=== PATIENT | male | born 1945 | race Caucasian/White ===

== ENCOUNTER 2018-04-02 06:19 | Emergency (ER) | payer OTHER, MEDICARE, SELFPAY ==
[2018-04-02 06:34] VITALS: BP 149/100; PULSE 60; RESP 18; TEMP 36.8; O2SAT 98; BMI 27.1
--- NOTE | 2018-04-02 06:47 | ED.MALEGU ---
HPI - Male Genitourinary General Chief complaint: Urogenital-Male Stated complaint: cystoscopy yesterday cant urinate painful Time Seen by Provider: 04/02/18 06:23 Source: patient and family Mode of arrival: ambulatory Limitations: no limitations History of Present Illness HPI Narrative: 72-year-old male, nonsmoker presents with his for evaluation of difficulty with urination over the course of the day. He has known prostatic cancer and has a recent cystoscopy. He complains he was able to urinate normal until yesterday afternoon when he started noting and decrease in his ability to completely void. Over the course of the night it became increasingly difficult until this morning when he can hardly urinate at all. He denies fever or chills nor nausea or vomiting. He has no chest pain, shortness of breath or abdominal pain. Reports denies other symptoms Related Data Home Medications Medication Instructions Recorded Confirmed LISINOPRIL (Zestril / Prinivil) 10 mg PO Q DAY #0 06/10/10 Promethazine HCl (Phenergan) 25 mg PO PRN #0 06/10/10 lovastatin 40 mg PO Q ARSH #0 06/10/10 Review of Systems Constitutional Denies chills, Denies fever(s), Denies lethargy and Denies weakness Eyes Denies change in vision, Denies eye discharge, Denies irritation and Denies loss of vision ENT Ears, Nose, Mouth, and Throat: Denies change in voice, Denies neck pain and Denies sore throat Cardiovascular Denies chest pain, Denies irregular heart rhythm, Denies lightheadedness, Denies palpitations, Denies dyspnea, Denies dyspnea on exertion and Denies orthopnea Respiratory Denies cough, Denies dyspnea, Denies dyspnea on exertion and Denies wheezing Gastrointestinal Gastrointestinal: Denies abdominal pain, Denies change in bowel habits, Denies diarrhea, Denies nausea and Denies vomiting Genitourinary Denies hematuria, Denies flank pain, Denies urinary incontinence and Denies urinary urgency Comments: Urinary retention Musculoskeletal Denies neck pain Integumentary/Breasts Denies pruritus, Denies erythema, Denies rash and Denies wounds Neurologic Denies confusion, Denies loss of vision and Denies weakness Psychiatric Denies anxiety, Denies confusion, Denies depression, Denies homicidal ideation and Denies suicidal ideation Endocrine Denies palpitations Hematologic/Lymphatic Denies easy bruising Allergic/Immunologic Denies wheezing Exam Narrative Exam Narrative: GEN: AOx3 and in mild distress EYES: Pupils are equal, round, and reactive to light and accommodation. Extraoccular muscles are intact bilaterally. There is no subconjunctival hemorrhage or exudate. CHEST: Lungs are clear to auscultation bilaterally and free of wheezes, rales, or rhonchi. Heart rate is regular rhythm, there are no murmurs, clicks, rubs, or gallops. There is no chest wall tenderness. ABD: Abdomen is soft and nontender. There is no guarding or rebound. Bowel sounds are normal in all 4 quadrants. There is no mass or organomegaly. EXT: Full painless ROM of all extremities with no loss of sensation or strength. SKIN: Warm, pink, and dry. No erythema or rash Initial Vital Signs Initial Vital Signs: Vital Signs Temperature 98.2 F 04/02/18 06:34 Pulse Rate 60 04/02/18 06:34 Respiratory Rate 18 04/02/18 06:34 Blood Pressure 149/100 H 04/02/18 06:34 Pulse Oximetry 98 04/02/18 06:34 Course Orders Ordered: ED Orders 04/02/18 06:37 UA Complete [Urinalysis and Microscopic] Stat Reevaluation(s) Reevaluation #1: Patient has bladder scan noting approximately 600 mils in bladder. Patient able to void and postvoid residual notes for [address] Bertrand catheter discussed with patient and and they state their urologist suggested this would happen Vital Signs - 8 hr 04/02/18 06:34 Temperature 98.2 F Pulse Rate 60 Respiratory Rate 18 Blood Pressure 149/100 H Pulse Oximetry 98 MDM - Male Genitourinary Differential Diagnosis Likely urinary tract infection and acute retention of urine Medical Records Attestation: I reviewed the patient's medical records. Lab Data Attestation: I reviewed the patient's lab results. Lab Results 04/02/18 Range/Units 06:35 Urine Color Red Urine Appearance Other Urine pH 7.0 (4.5-8.0) Ur Specific [place] 1.015 (1.000-1.035) Urine Protein 3+ H (Negative) Urine Glucose (UA) Negative (Negative) g/dL Urine Ketones Negative (NEGATIVE) Urine Occult Blood 3+ H (Negative) Urine Nitrate Negative (Negative) Urine Bilirubin Negative (NEGATIVE) Urine Urobilinogen 0.2 (0.2) E.U./dL Ur Leukocyte Esterase Negative (NEGATIVE) Urine RBC >100/hpf (0-5/HPF) Urine WBC None seen (0-5/HPF) Urine Bacteria None seen (None) Ur Culture Indicated? Cult not indicated MDM Narrative Medical decision making narrative: Multiple etiologies for patient's symptoms considered including: [Acute urinary retention] Patient's symptoms improved or duration of stay with above-stated therapies. Findings and discharge diagnosis discussed with patient/family followed by verbalization of understanding Return precautions discussed with patient/family whom verbalize understanding. Discharge Plan Departure Patient Disposition: Home Clinical Impression: Acute urinary retention Discharge Date/Time: 04/02/18 08:42 Interventions: ED Discharge Assessment Last Done: 04/02/18 08:40 Instructions: DI for Urinary Retention in Men Activity Restrictions/Additional Instructions: *You have been diagnosed with [ acute urinary retention ] *What to do: *continue to take medications as directed *Follow up with your urologist in 2-3 days, call for an appointment. Let them know you were seen in the Emergency Department and that we ask that you be seen in follow up *Return to ER if you should have any new, worsening or concerning symptoms Prescriptions: No Action lovastatin 10 MG tablet 40 mg PO Q ARSH Qty: 0 RF: 0 LISINOPRIL (Zestril / Prinivil) 10 mg PO Q DAY Qty: 0 RF: 0 Promethazine HCl (Phenergan) 25 mg PO PRN Qty: 0 RF: 0
[2018-04-02 06:49] LABS: Bacteria Urine None Seen; WBC Urine None Seen (0-5/HPF)
[2018-04-02 07:04] LABS: Bilirubin Urine UA NEGATIVE (NEGATIVE); Color Urine UA RED; Glucose Urine UA NEGATIVE (Negative); Ketones Urine UA NEGATIVE (NEGATIVE); Leukocyte Esterase Urine UA NEGATIVE (NEGATIVE); Nitrite Urine UA NEGATIVE (Negative); Occult Blood Urine UA 3+ (Negative); Protein Urine UA 3+ (Negative); Specific Gravity Urine UA 1.015 (1.000-1.035); Urobilinogen Urine UA 0.2 E.U./dL (0.2)
[2018-04-02 07:05] LABS: Appearance Urine UA OTHER; Culture Indicated Urine Cult Not Indicated; RBC Urine >100/HPF (0-5/HPF)
--- NOTE | 2018-04-02 07:20 | PC.NURSE ---
Pt educated on preventing UTI with catheter, draining catheter, cleaning catheter. Pt tolerated procedure well. He expressed discomfort during insertion and states the pressure is going away immediately after placement. 500 ML dark red urine returned. tubing secured to left thigh with securement device.
[2018-04-02 07:43] VITALS: BP 140/87; PULSE 80; RESP 18; O2SAT 98
--- NOTE | 2018-04-06 16:25 | PC.NURSE ---
follow up call: pt states doing better, has a follow up appt in a few days to have catheter removed.
== END 2018-04-02 08:42 | disposition home or self-care (01) ==
PROVIDERS: Emergency Provider Emergency Medicine
DX: R33.9 Retention of urine, unspecified (principal)
CPT/HCPCS: 81001; 99283

== ENCOUNTER → 2020-02-26 08:34 | Outpatient (CLI) | payer OTHER, MEDICARE, SELFPAY ==
[2020-02-26 10:11] LABS: Alanine Aminotransferase 43 IU/L (<50); Albumin 4.4 g/dL (3.5-5.0); Albumin Globulin Ratio 1.3 (1.0-2.8); Alkaline Phosphatase 68 U/L (38-126); Aspartate Aminotransferase 37 IU/L (17-59); BUN Creatinine Ratio 17.1 (6-22); Bilirubin Total 0.5 mg/dL (0.2-1.3); Blood Urea Nitrogen 18 mg/dL (9-20); Calcium 9.4 mg/dL (8.4-10.2); Carbon Dioxide 26 mmol/L (22-32); Chloride 102 mmol/L (98-107); Estimated Glomerular Filt Rate > 60.0 mL/min (>60); Globulin 3.5 g/dL (1.7-4.1); Glucose 102 mg/dL (80-110); HEMOLYSIS < 15 (0-50); Sodium 136 mmol/L (137-145); Total Protein 7.9 g/dL (6.3-8.2)
[2020-02-26 10:39] LABS: Prostate Specific Antigen < 0.064 ng/mL (0.10-4.00)
[2020-02-26 10:55] LABS: Vitamin B12 534 pg/mL (239-931)
== END ==
PROVIDERS: Referring Provider Student in an Organized Health Care Education/Training Program; Visit Provider Student in an Organized Health Care Education/Training Program
DX: Z85.51 Personal history of malignant neoplasm of bladder (principal); C67.9 Malignant neoplasm of bladder, unspecified; Z85.46 Personal history of malignant neoplasm of prostate
CPT/HCPCS: 36415; 80053; 82607; 84153; 88112

== ENCOUNTER 2022-08-14 11:49 | Observation (INO) | payer OTHER, SELFPAY ==
[2022-08-14] VITALS (11 sets, daily range): BP systolic 109–169; BP diastolic 59–87; PULSE 72–106; RESP 16–26; TEMP 36.8–36.9; O2SAT 93–98; BMI 29.7; BMI 30.1
--- NOTE | 2022-08-14 11:53 | ED_ITS ---
HPI - GI Bleed General Chief complaint: Dizziness Stated complaint: vomiting, black stool, dark urine Time Seen by Provider: 08/14/22 11:53 History of Present Illness HPI Narrative: 76M smoker with history of GERD, HTN, drinker (30 years ago) presents with his and the chief complaint of a few episodes of dark stools over the past few days it at least 1 episode of dark vomit. At no point has he vomited bright red blood. He is not dizzy nor weak or lightheaded but generally feels a bit under the weather. He denies use of blood thinners. He drank alcohol years ago, but not in an ongoing fashion and has never had any issues with gastrointestinal bleeding before. He denies any chest pain but does feel somewhat short of breath when he exerts himself. He denies any dysuria, frequency or urgency but does state it has been dark Related Data Home Medications Medication Instructions Recorded Confirmed LISINOPRIL (Zestril / Prinivil) 10 mg PO Q DAY ##0 06/10/10 Promethazine HCl (Phenergan) 25 mg PO PRN ##0 06/10/10 lovastatin 10 mg tablet 40 mg PO Q ARSH ##0 06/10/10 Allergies Allergy/AdvReac Type Severity Reaction Status Date / Time No Known Drug Allergies Allergy Verified 08/14/22 11:56 Review of Systems Review of Systems Narrative: GENERAL: See HPI HEENT: Denies sinus pain, ear pain, sore throat, difficulty swallowing, dizziness. RESPIRATORY: See HPI CARDIOVASCULAR: Denies chest pain, palpitations, orthopnea, edema, GASTROINTESTINAL: See HPI : Denies dysuria, frequency, incontinence, hematuria, urinary retention. MUSCULOSKELETAL: denies weakness, joint pain, or bony pain SKIN: Denies rash, skin lesions, or other NEUROLOGIC: Denies weakness, headache, numbness, change in speech, confusion, seizures, incoordination. PSYCHIATRIC: No concerning psychosocial issues. 12 point review of systems is negative except for those stated above Patient History Social History Smoking Status: Unknown if ever smoked Exam Narrative Exam Narrative: GENERAL: [76] year old patient appears older than stated age. Well-developed patient, in mild distress. HEAD: Atraumatic. Normocephalic. EYES: Pupils equal round and reactive. Extraocular motions intact. No scleral icterus. No injection or drainage. ENT: Nose without bleeding, purulent drainage. Throat without erythema, tonsillar hypertrophy or exudate. Airway patent. NECK: Trachea midline. Non tender CARDIOVASCULAR: Regular rate and rhythm without murmurs, gallops, or rubs. RESPIRATORY: Clear to auscultation. Breath sounds equal bilaterally. No wheezes, rales, or rhonchi. GASTROINTESTINAL: Abdomen soft, non-tender, nondistended. EXTREMITIES: No edema or joint tenderness. BACK: Nontender without deformity or crepitance. No flank tenderness. NEURO: AOx3. SKIN: No rash or erythema of visible areas Initial Vital Signs Initial Vital Signs: Vital Signs Temperature 98.5 F 08/14/22 11:51 Pulse Rate 102 H 08/14/22 11:51 Respiratory Rate 18 08/14/22 11:51 Blood Pressure 117/75 08/14/22 11:51 Pulse Oximetry 94 08/14/22 11:51 Oxygen Delivery Method Room Air 08/14/22 11:51 Course Orders Ordered: ED Orders 08/14/22 12:00 XR acute abdomen series Stat 08/14/22 12:10 Complete Blood Count AUTO DIFF Stat Comprehensive Metabolic Panel Stat Lactate (Lactic Acid) Stat Lipase Stat Magnesium Stat PTT Partial Thromboplastin Doron Stat Prothrombin Time INR Stat Troponin & CK Cardiac Panel Stat Type and Screen Stat 08/14/22 18:00 Hemoglobin and Hematocrit Q8H 08/15/22 02:00 Hemoglobin and Hematocrit Q8H 08/15/22 10:00 Hemoglobin and Hematocrit Q8H Sodium Chloride (Normal Saline 0.9%) 1,000 mls @ 1,000 mls/hr IV BOLUS ONE Stop: 08/14/22 14:16 Last Admin: 08/14/22 13:29 Dose: 1,000 mls/hr Discontinued Medications Pantoprazole Sodium (Pantoprazole 40 Mg Vial) 80 mg IV NOW ONE Stop: 08/14/22 12:00 Last Admin: 08/14/22 12:33 Dose: 80 mg Documented By: KM Consultations Consultation #1: Discussed with on-call General surgery, Dr. Rehman, he is happy to be involved in consultation Consultation #2: Discussed with hospitalist, Dr. Piedra, happy to accept Vital Signs Vital signs: Vital Signs - 8 hr 08/14/22 11:51 08/14/22 11:55 08/14/22 11:55 Temperature 98.5 F Pulse Rate 102 H 106 H Respiratory Rate 18 Blood Pressure 117/75 117/75 Pulse Oximetry 94 93 Oxygen Delivery Method Room Air 08/14/22 12:00 Temperature Pulse Rate 97 H Respiratory Rate 21 Blood Pressure Pulse Oximetry 96 Oxygen Delivery Method MDM - GI Bleed Lab Data 08/14/22 12:10 08/14/22 12:10 Labs: Lab Results 08/14/22 08/14/22 08/14/22 Range/Units 12:10 12:10 12:10 WBC 15.2 H (4.5-11.0) X10^3/uL RBC 4.27 L (4.5-5.9) X10^6/uL Hgb 13.0 L (13.5-17.5) g/dL Hct 38.5 L (41-53) % MCV 90.2 (80-100) fL MCH 30.5 (26-34) PG MCHC 33.9 (30-36) % RDW 13.8 (11.6-14.8) % Plt Count 343 (150-400) X10^3/uL Neut % (Auto) 78.8 H (50-75) % Lymph % (Auto) 12.1 L (25-40) % [place] % (Auto) 8.4 (3-14) % Eos % (Auto) 0.4 L (2-4) % Baso % (Auto) 0.3 (0-2) % Neut # (Auto) 00386 H (3818-0270) /uL Lymph # (Auto) 1900 (6898-3249) /uL [place] # (Auto) 1300 H (0-900) /uL Eos # (Auto) 100 (0-450) /uL Baso # (Auto) 0 (0-100) /uL PT 13.2 H (10.1-12.7) SECONDS INR 1.2 (0.9-1.3) APTT 23 L (26-36) SECONDS Sodium (137-145) mmol/L Potassium (3.4-5.1) mmol/L Chloride (98-107) mmol/L Carbon Dioxide (22-32) mmol/L BUN (9-20) mg/dL Creatinine (0.66-1.25) mg/dL Estimated GFR (>60) mL/min BUN/Creatinine Ratio (6-22) Glucose (80-110) mg/dL Lactate (0.7-2.1) mmol/L Calcium (8.4-10.2) mg/dL Magnesium (1.6-2.3) mg/dL Total Bilirubin (0.2-1.3) mg/dL AST (17-59) IU/L ALT (<50) IU/L Alkaline Phosphatase (38-126) U/L Total Creatine Kinase (55-170) U/L CK-MB (CK-2) CK-MB (CK-2) Rel Index Total Protein (6.3-8.2) g/dL Albumin (3.5-5.0) g/dL Globulin (1.7-4.1) g/dL Albumin/Globulin Ratio (1.0-2.8) Lipase (23-300) U/L Blood Type O Positive Antibody Screen Negative 08/14/22 08/14/22 Range/Units 12:10 12:10 WBC (4.5-11.0) X10^3/uL RBC (4.5-5.9) X10^6/uL Hgb (13.5-17.5) g/dL Hct (41-53) % MCV (80-100) fL MCH (26-34) PG MCHC (30-36) % RDW (11.6-14.8) % Plt Count (150-400) X10^3/uL Neut % (Auto) (50-75) % Lymph % (Auto) (25-40) % [place] % (Auto) (3-14) % Eos % (Auto) (2-4) % Baso % (Auto) (0-2) % Neut # (Auto) (0569-7172) /uL Lymph # (Auto) (0873-5531) /uL [place] # (Auto) (0-900) /uL Eos # (Auto) (0-450) /uL Baso # (Auto) (0-100) /uL PT (10.1-12.7) SECONDS INR (0.9-1.3) APTT (26-36) SECONDS Sodium 131 L (137-145) mmol/L Potassium 3.9 (3.4-5.1) mmol/L Chloride 97 L (98-107) mmol/L Carbon Dioxide 24 (22-32) mmol/L BUN 54 H (9-20) mg/dL Creatinine 1.60 H (0.66-1.25) mg/dL Estimated GFR 45 L (>60) mL/min BUN/Creatinine Ratio 33.8 H (6-22) Glucose 116 H (80-110) mg/dL Lactate 2.0 (0.7-2.1) mmol/L Calcium 9.1 (8.4-10.2) mg/dL Magnesium 2.0 (1.6-2.3) mg/dL Total Bilirubin 0.9 (0.2-1.3) mg/dL AST 23 (17-59) IU/L ALT 26 (<50) IU/L Alkaline Phosphatase 68 (38-126) U/L Total Creatine Kinase 90 (55-170) U/L CK-MB (CK-2) TNP CK-MB (CK-2) Rel Index TNP Total Protein 7.0 (6.3-8.2) g/dL Albumin 3.8 (3.5-5.0) g/dL Globulin 3.2 (1.7-4.1) g/dL Albumin/Globulin Ratio 1.2 (1.0-2.8) Lipase 192 (23-300) U/L Blood Type Antibody Screen [facility] Narrative Medical decision making narrative: 76-year-old male presents with dark stools, he feels fatigued but very nonspecific otherwise. He denies any history of the same, thankfully takes no blood thinners. And though he is a former drinker he quit 30 some years ago and has never had any GI bleeding before. Labs in many ways are reassuring and there is no evidence of anemia though his [place] bleeding score is 6. Patient was given Protonix and saline, patient requires hospitalization for further evaluation and characterization of his condition, likely endoscopy in the next day or 2 Discharge Plan Departure Patient Disposition: Admitted As Inpatient Clinical Impression: Acute upper gastrointestinal bleeding, Acute kidney injury
--- NOTE | 2022-08-14 12:00 | DI.RAD.S_ITS ---
PROCEDURE: XR ACUTE ABDOMEN SERIES INDICATIONS: Abdominal pain TECHNIQUE: One view chest and two views of the abdomen were acquired. COMPARISON: [facility], CT, ABDOMEN WITH CONTRAST, 06/10/2010, 14:20. FINDINGS: Surgical changes and devices: None. Chest: Focal linear atelectasis or scarring at the left lung base. Lungs are otherwise clear. Heart size is normal. No pleural effusions. No pneumoperitoneum. Abdomen: Bowel gas pattern is normal. No suspicious calcifications. Visualized solid organ contours appear normal. Bones: No suspicious bony lesions. Degenerative changes are seen in the spine. Mild levoconvex curvature of the lumbar spine. IMPRESSION: Nonspecific nonobstructive bowel gas pattern. No pneumoperitoneum. No acute cardiopulmonary abnormality. Approved by: Wilmar Crowell M.D. on 08/14/2022 at 13:01
[2022-08-14 12:22] LABS: Add Manual Diff / Slide Review NO; Basophils Absolute Auto 0 /uL (0-100); Basophils Percent Auto 0.3 % (0-2); Eosinophils Absolute Auto 100 /uL (0-450); Eosinophils Percent Auto 0.4 % (2-4); Hematocrit 38.5 % (41-53); Lymphocytes Absolute Auto 1900 /uL (1100-4500); Lymphocytes Percent Auto 12.1 % (25-40); Mean Corpuscular HGB Conc 33.9 % (30-36); Mean Corpuscular Hemoglobin 30.5 PG (26-34); Mean Corpuscular Volume 90.2 fL (80-100); Monocytes Absolute Auto 1300 /uL (0-900); Monocytes Percent Auto 8.4 % (3-14); Neutrophils Absolute Auto 12000 /uL (1500-7000); Neutrophils Percent Auto 78.8 % (50-75); Platelet Count 343 X10^3/uL (150-400); Red Blood Cell Count 4.27 X10^6/uL (4.5-5.9); Red Cell Distribution Width 13.8 % (11.6-14.8); White Blood Cell Count 15.2 X10^3/uL (4.5-11.0)
[2022-08-14 12:29] LABS: INR 1.2 (0.9-1.3); Prothrombin Time 13.2 SECONDS (10.1-12.7)
[2022-08-14 12:32] LABS: PTT Partial Thromboplastin Tim 23 SECONDS (26-36)
[2022-08-14] MEDS: PANTOPRAZOLE 40 MG VIAL 80 MG IV (12:33)
[2022-08-14 13:01] LABS: Alanine Aminotransferase 26 IU/L (<50); Albumin 3.8 g/dL (3.5-5.0); Albumin Globulin Ratio 1.2 (1.0-2.8); Alkaline Phosphatase 68 U/L (38-126); Aspartate Aminotransferase 23 IU/L (17-59); BUN Creatinine Ratio 33.8 (6-22); Bilirubin Total 0.9 mg/dL (0.2-1.3); Blood Urea Nitrogen 54 mg/dL (9-20); Calcium 9.1 mg/dL (8.4-10.2); Carbon Dioxide 24 mmol/L (22-32); Chloride 97 mmol/L (98-107); Creatine Kinase 90 U/L (55-170); Estimated Glomerular Filt Rate 45 mL/min (>60); Globulin 3.2 g/dL (1.7-4.1); Glucose 116 mg/dL (80-110); HEMOLYSIS < 15 (0-50); Lipase 192 U/L (23-300); Potassium 3.9 mmol/L (3.4-5.1); Sodium 131 mmol/L (137-145)
[2022-08-14] MEDS: SODIUM CHLORIDE 0.9% 1,000 ML 1000 ML IV (13:29)
[2022-08-14 13:38] LABS: Troponin I 0.013 ng/mL (0.01-0.034)
[2022-08-14 13:58] LABS: Appearance Urine UA CLOUDY; Bilirubin Urine UA NEGATIVE (NEGATIVE); Color Urine UA YELLOW; Glucose Urine UA NEGATIVE (Negative); Ketones Urine UA NEGATIVE (NEGATIVE); Leukocyte Esterase Urine UA 1+ (NEGATIVE); Nitrite Urine UA NEGATIVE (Negative); Occult Blood Urine UA 3+ (Negative); Protein Urine UA 2+ (Negative); pH Urine UA 6.5 (4.5-8.0)
[2022-08-14 14:14] LABS: Amorphous Sediment Urine 2+; Bacteria Urine Few (2-10); Granular Casts Urine 1-5/LPF; Hyaline Casts Urine 1-5/LPF; Mucus Urine 1+ (Negative); RBC Urine 10-30/HPF (0-5/HPF); Squamous Epithelial Cell Urine 1-5 /HPF (0-5/HPF); WBC Urine 5-10/HPF (0-5/HPF)
[2022-08-14 14:15] LABS: Culture Indicated Urine Specimen Cultured
--- NOTE | 2022-08-14 15:40 | P.HP_ITS ---
History of Present Illness History of Present Illness Chief complaint: vomiting, black stool, dark urine Narrative: 76 yo male with GERD, HTN, hyperlipidemia, history of bladder cancer status post urostomy, remote history of peptic ulcer disease 20 years ago, remote alcohol dependence (30 yrs ago) who presented to ED c/o nausea, dark stool, and dark emesis. Patient reports he awoke on August 10 and had nausea and generalized upset stomach. He states the following day his symptoms were unchanged. He notes by , his symptoms were worse. He was able to tolerate some oral intake and feels his urine output was maintained and normal. Yesterday, he states he had black emesis on 3 occasions. He continued to have nausea. Today, he awoke and passed black stool and had ongoing nausea and presented to the emergency department for further evaluation. In the ED his vitals were fairly stable. He was initially mildly tachycardic but that has since resolved. Blood pressures have been stable. Initial labs revealed a hemoglobin of 13.0 (no prior labs for comparison). Sodium was 131, BUN elevated at 54, creatinine elevated at 1.6. Prior labs were from February of 2020 with normal BUN and creatinine. He received 1 L of IV fluids, 80 mg of IV Protonix, and admission was recommended. The emergency room physician contacted on-call General surgery for consultation. Currently, patient reports he still is having nausea. He denies any hematemesis. Further bowel movements. He reports a history of GERD and takes omeprazole chronically. He denies any recent worsening of symptoms. He is a nonsmoker. No alcohol use. Was taking nightly aspirin over the last 5 years. He quit that approximately 2 weeks ago. No [id number] NSAIDs. States he is not been having any abdominal pain. He denies any chest pain, shortness a breath, lightheadedness/dizziness. [facility] Social History household members: family Smoking Status: Never smoker alcohol intake: current Comment: Past medical history: Hypertension Hyperlipidemia Bladder cancer status post urostomy GERD Peptic ulcer disease remotely Remote tobacco dependence Remote alcohol dependence Generalized anxiety disorder Dementia, [place] of in 2019, he was getting lost while driving, and becoming more forgetful. Family history: Mother and grandmother had cancer, unknown etiology Father had heart attack and from that Social history: Patient lives in [place] with his , Mari. She is his surrogate decision maker. He is retired. No alcohol or tobacco use Meds Home Medications and Allergies Home Medications Medication Instructions Recorded Confirmed Type LISINOPRIL (Zestril / Prinivil) 20 mg PO Q DAY ##0 06/10/10 08/14/22 History lovastatin 10 mg tablet 40 mg PO Q ARSH ##0 06/10/10 08/14/22 History aspirin 81 mg tablet,delayed 81 mg PO DAILY 08/14/22 08/14/22 History release citalopram 20 mg tablet 20 mg PO DAILY 08/14/22 08/14/22 History donepezil 5 mg tablet 5 mg PO DAILY 08/14/22 08/14/22 History Allergies Allergy/AdvReac Type Severity Reaction Status Date / Time No Known Drug Allergies Allergy Verified 08/14/22 11:56 Review of Systems Review of Systems Narrative: All other systems were reviewed negative Exam Vital Signs (past 8 hours): - 08/14/22 11:51 08/14/22 11:55 08/14/22 11:55 Temperature 98.5 F Pulse Rate 102 H 106 H Respiratory Rate 18 Blood Pressure 117/75 117/75 Pulse Oximetry 94 93 Oxygen Delivery Method Room Air 08/14/22 12:00 08/14/22 12:30 08/14/22 13:00 Temperature Pulse Rate 97 H 93 H 91 H Respiratory Rate 21 21 23 Blood Pressure Pulse Oximetry 96 95 93 Oxygen Delivery Method 08/14/22 13:30 08/14/22 13:50 08/14/22 13:50 Temperature Pulse Rate 83 83 Respiratory Rate 24 26 H Blood Pressure 123/59 L Pulse Oximetry 96 96 Oxygen Delivery Method 08/14/22 14:00 08/14/22 14:00 08/14/22 14:30 Temperature Pulse Rate 80 Respiratory Rate 22 Blood Pressure 125/66 138/66 Pulse Oximetry 98 Oxygen Delivery Method 08/14/22 14:30 Temperature Pulse Rate 72 Respiratory Rate 22 Blood Pressure Pulse Oximetry 97 Oxygen Delivery Method Oxygen Delivery Method Room Air Narrative Exam Narrative: GEN: Elderly male, pleasant, Alert and oriented x3, no acute distress HEENT: Normocephalic, face symmetric, pupils equal round reactive to light, extraocular movements intact, sclerae anicteric, conjunctiva clear, nares patent, oropharynx reveals an intact soft and hard palate with moist mucous membranes NECK: Supple, no lymphadenopathy, thyroid without enlargement or nodularity, carotids no bruits CHEST: Respiratory excursions symmetric, clear to auscultation bilaterally CV: Regular rate and rhythm, no murmurs, rubs, gallops, PMI nondisplaced ABD: Soft, moderate midepigastric tenderness to palpation, nondistended, bowel sounds present in all 4 quadrants, no organomegaly or masses appreciated, urostomy noted in the right lower quadrant EXTR: Warm, well perfused, no clubbing/cyanosis/edema SKIN: Warm and dry, without rash NEURO: Alert and oriented x3, grossly intact PSYCH: Mood and affect is within normal limits, judgment and insight are appropriate Objective Labs 08/14/22 12:10 08/14/22 12:10 Labs: Laboratory Results - last 24 hr 08/14/22 08/14/22 08/14/22 12:10 12:10 12:10 WBC 15.2 H RBC 4.27 L Hgb 13.0 L Hct 38.5 L MCV 90.2 MCH 30.5 MCHC 33.9 RDW 13.8 Plt Count 343 Neut % (Auto) 78.8 H Lymph % (Auto) 12.1 L [place] % (Auto) 8.4 Eos % (Auto) 0.4 L Baso % (Auto) 0.3 Neut # (Auto) 04368 H Lymph # (Auto) 1900 [place] # (Auto) 1300 H Eos # (Auto) 100 Baso # (Auto) 0 PT 13.2 H INR 1.2 APTT 23 L Sodium Potassium Chloride Carbon Dioxide BUN Creatinine Estimated GFR BUN/Creatinine Ratio Glucose Lactate Calcium Magnesium Total Bilirubin AST ALT Alkaline Phosphatase Total Creatine Kinase CK-MB (CK-2) CK-MB (CK-2) Rel Index Troponin I Total Protein Albumin Globulin Albumin/Globulin Ratio Lipase Urine Color Urine Appearance Urine pH Ur Specific [place] Urine Protein Urine Glucose (UA) Urine Ketones Urine Occult Blood Urine Nitrate Urine Bilirubin Urine Urobilinogen Ur Leukocyte Esterase Urine RBC Urine WBC Ur Squamous Epith Cells Amorphous Sediment Urine Bacteria Hyaline Casts Granular Casts Urine Mucus Ur Culture Indicated? Blood Type O Positive Antibody Screen Negative 08/14/22 08/14/22 08/14/22 12:10 12:10 13:53 WBC RBC Hgb Hct MCV MCH MCHC RDW Plt Count Neut % (Auto) Lymph % (Auto) [place] % (Auto) Eos % (Auto) Baso % (Auto) Neut # (Auto) Lymph # (Auto) [place] # (Auto) Eos # (Auto) Baso # (Auto) PT INR APTT Sodium 131 L Potassium 3.9 Chloride 97 L Carbon Dioxide 24 BUN 54 H Creatinine 1.60 H Estimated GFR 45 L BUN/Creatinine Ratio 33.8 H Glucose 116 H Lactate 2.0 Calcium 9.1 Magnesium 2.0 Total Bilirubin 0.9 AST 23 ALT 26 Alkaline Phosphatase 68 Total Creatine Kinase 90 CK-MB (CK-2) TNP CK-MB (CK-2) Rel Index TNP Troponin I 0.013 Total Protein 7.0 Albumin 3.8 Globulin 3.2 Albumin/Globulin Ratio 1.2 Lipase 192 Urine Color Yellow Urine Appearance Cloudy Urine pH 6.5 Ur Specific [place] 1.010 Urine Protein 2+ H Urine Glucose (UA) Negative Urine Ketones Negative Urine Occult Blood 3+ H Urine Nitrate Negative Urine Bilirubin Negative Urine Urobilinogen 1.0 Ur Leukocyte Esterase 1+ H Urine RBC 10-30/hpf H Urine WBC 5-10/hpf H Ur Squamous Epith Cells 1-5 /hpf Amorphous Sediment 2+ Urine Bacteria Few (2-10) H Hyaline Casts 1-5/lpf Granular Casts 1-5/lpf Urine Mucus 1+ H Ur Culture Indicated? Specimen cultured Blood Type Antibody Screen Assessment & Plan Assessment & Plan narrative: 1. Acute GI bleed, upper Patient presents with black emesis as well as black stool. Likely etiology is an upper GI bleed. He has epigastric discomfort prior history of peptic ulcer disease, recent use of daily aspirin, and known gastroesophageal reflux disease. He is not had any further emesis since yesterday. Hemoglobin is stable. Will continue supportive care with IV ppi, clear liquid diet IV fluid hydration. Await surgical consultation. I have made him NPO after midnight in anticipation of EGD to be done tomorrow morning. Await further consult and recommendations from Dr. Rehman, general surgery. 2. DARÍO Patient presents with azotemia with a BUN of 54 as well as DARÍO with creatinine of 1.6. Likely secondary to hypovolemia from GI bleeding and poor overall intake. Anticipate this will improve with hydration and resolution of his GI bleed. 3. Hypertension Blood pressures have been moderately elevated since arrival to the floor. He was normotensive in the emergency department. Holding lisinopril due to DARÍO. For now, will tolerate some blood pressure elevation but if it persists, will need to add IV antihypertensive therapy. 4. Leukocytosis Likely reactive in nature from his GI bleed. Will monitor. 5. Dementia Patient is typically on Aricept. Previously prescribed memantine but it appears that has since been discontinued. 6. Hyperlipidemia On lovastatin 40 mg daily. 7. Generalized anxiety disorder Plan to resume his she will citalopram dose. Code status Full Prophylaxis Chemical prophylaxis Contraindicated in the setting of GI bleed; low Brunilda score Disposition Admit to acute care. Surrogate decision maker: Mari carpenter, , left VM to call for update. Quality VTE Deep Vein Thrombosis/Pulmonary Embolism Present on Admission: No
[2022-08-14] MEDS: SODIUM CHLORIDE 0.45% 1,000 ML 100 ML IV (16:33)
--- NOTE | 2022-08-14 16:35 | PC.NURSE ---
Patient states that he had a fall today out of bed. His skin is clear, patient does have a urostomy from bladder cancer. He states that he does not feel great but denies pain or nausea. He does have some mild dementia, went home for the night and will be back tomorrow. No signs or symptoms of syncope and patient has only voided.
[2022-08-14 18:48] LABS: Hematocrit 36.7 % (41-53); Hemoglobin 12.2 g/dL (13.5-17.5)
[2022-08-14] MEDS: PANTOPRAZOLE 40 MG VIAL IV (20:46)
[2022-08-14] MEDS: MELATONIN 3 MG TABLET PO (20:46)
[2022-08-14] MEDS: MEMANTINE HCL 5 MG TABLET 10 MG PO (21:46)
[2022-08-15] VITALS (11 sets, daily range): BP systolic 85–135; BP diastolic 55–78; PULSE 74–84; RESP 11–21; TEMP 36.3–37; O2SAT 93–98; BMI 30.1
--- NOTE | 2022-08-15 | PATH_ITS ---
[facility] Accession Number: [id number] No. of containers..01 Tissue . 01 Material submitted: . stomach - ANTRUM BIOPSIES . 01 Diagnosis: Gastric Antrum, Biopsies: Gastric antral mucosa with no diagnostic abnormality. No evidence of Helicobacter organisms on H/E stain. Negative for intestinal metaplasia. Negative for dysplasia or malignancy. V 08/21/2022 1534 Local . 01 Electronically signed: . Darien Taylor MD, PhD, Pathologist NPI- [id number] . 01 Gross description: . ANTRUM BIOPSIES: Received in formalin are multiple fragment(s) of gonzalez, soft tissue measuring 1.0 x 0.3 x 0.1 cm in aggregate submitted entirely in 1 cassette(s) /[facility] 08/19/2022 1444 Local . 01 Pathologist provided ICD-10: R10.13 . 01 CPT . 394358 Specimen Comment: A courtesy copy of this report has been sent to [phone] Performed at: 01 [facility] [address] [place] [address], [place], [place] [id number] MD Vinnie Hills MD Phone: [phone]
[2022-08-15] MEDS: SODIUM CHLORIDE 0.45% 1,000 ML 100 ML IV (02:33)
[2022-08-15 05:08] LABS: Add Manual Diff / Slide Review NO; Basophils Absolute Auto 0 /uL (0-100); Basophils Percent Auto 0.5 % (0-2); Eosinophils Absolute Auto 200 /uL (0-450); Eosinophils Percent Auto 2.1 % (2-4); Hematocrit 33.7 % (41-53); Hemoglobin 11.3 g/dL (13.5-17.5); Lymphocytes Absolute Auto 1400 /uL (1100-4500); Lymphocytes Percent Auto 15.7 % (25-40); Mean Corpuscular HGB Conc 33.6 % (30-36); Mean Corpuscular Hemoglobin 30.6 PG (26-34); Mean Corpuscular Volume 91.1 fL (80-100); Monocytes Absolute Auto 700 /uL (0-900); Monocytes Percent Auto 7.8 % (3-14); Neutrophils Absolute Auto 6800 /uL (1500-7000); Neutrophils Percent Auto 73.9 % (50-75); Platelet Count 266 X10^3/uL (150-400); Red Cell Distribution Width 13.9 % (11.6-14.8); White Blood Cell Count 9.2 X10^3/uL (4.5-11.0)
[2022-08-15 05:23] LABS: BUN Creatinine Ratio 33.8 (6-22); Blood Urea Nitrogen 45 mg/dL (9-20); Calcium 7.9 mg/dL (8.4-10.2); Carbon Dioxide 25 mmol/L (22-32); Chloride 99 mmol/L (98-107); Estimated Glomerular Filt Rate 56 mL/min (>60); Glucose 96 mg/dL (80-110); HEMOLYSIS < 15 (0-50); Potassium 3.9 mmol/L (3.4-5.1); Sodium 130 mmol/L (137-145)
[2022-08-15] MEDS: PANTOPRAZOLE 40 MG VIAL IV (09:15)
[2022-08-15 10:00] LABS: COVID19 -Nasal RAPID Negative (Negative)
--- NOTE | 2022-08-15 10:07 | P.CONS_ITS ---
History of Present Illness Consult details Date Patient Seen: 08/15/22 Time Patient Seen: 10:07 Chief complaint: vomiting, black stool, dark urine Narrative: Som is a 76-year-old man who presented to abdominal pain, nausea and hematemesis and melena. His hemoglobin was 13.0. Has never had an EGD or colonoscopy. Has done Cologuard testing in the past which has always been negative. Meds Home Medications and Allergies Home Medications Medication Instructions Recorded Confirmed Type LISINOPRIL (Zestril / Prinivil) 20 mg PO Q DAY ##0 06/10/10 08/14/22 History lovastatin 10 mg tablet 40 mg PO Q ARSH ##0 06/10/10 08/14/22 History aspirin 81 mg tablet,delayed 81 mg PO DAILY 08/14/22 08/14/22 History release citalopram 20 mg tablet 20 mg PO DAILY 08/14/22 08/14/22 History donepezil 5 mg tablet 5 mg PO DAILY 08/14/22 08/14/22 History Allergies Allergy/AdvReac Type Severity Reaction Status Date / Time No Known Drug Allergies Allergy Verified 08/14/22 11:56 Exam Vital Signs (past 8 hours): - 08/15/22 03:56 08/15/22 08:41 Temperature 97.8 F 98.3 F Pulse Rate 75 82 Respiratory Rate 18 18 Blood Pressure 110/62 119/67 Pulse Oximetry 94 96 Oxygen Flow Rate 0 0 Oxygen Delivery Method Room Air Oxygen Flow Rate 0 Const General: frail appearing Resp Effort & Inspection: normal respiratory effort Objective Labs 08/15/22 04:40 08/15/22 04:40 Labs: Laboratory Results - last 24 hr 08/14/22 08/14/22 08/14/22 12:10 12:10 12:10 WBC 15.2 H RBC 4.27 L Hgb 13.0 L Hct 38.5 L MCV 90.2 MCH 30.5 MCHC 33.9 RDW 13.8 Plt Count 343 Neut % (Auto) 78.8 H Lymph % (Auto) 12.1 L [place] % (Auto) 8.4 Eos % (Auto) 0.4 L Baso % (Auto) 0.3 Neut # (Auto) 77217 H Lymph # (Auto) 1900 [place] # (Auto) 1300 H Eos # (Auto) 100 Baso # (Auto) 0 PT 13.2 H INR 1.2 APTT 23 L Sodium Potassium Chloride Carbon Dioxide BUN Creatinine Estimated GFR BUN/Creatinine Ratio Glucose Lactate Calcium Magnesium Total Bilirubin AST ALT Alkaline Phosphatase Total Creatine Kinase CK-MB (CK-2) CK-MB (CK-2) Rel Index Troponin I Total Protein Albumin Globulin Albumin/Globulin Ratio Lipase Urine Color Urine Appearance Urine pH Ur Specific [place] Urine Protein Urine Glucose (UA) Urine Ketones Urine Occult Blood Urine Nitrate Urine Bilirubin Urine Urobilinogen Ur Leukocyte Esterase Urine RBC Urine WBC Ur Squamous Epith Cells Amorphous Sediment Urine Bacteria Hyaline Casts Granular Casts Urine Mucus Ur Culture Indicated? SARS-CoV-2 (PCR) Blood Type O Positive Antibody Screen Negative 08/14/22 08/14/22 08/14/22 12:10 12:10 13:53 WBC RBC Hgb Hct MCV MCH MCHC RDW Plt Count Neut % (Auto) Lymph % (Auto) [place] % (Auto) Eos % (Auto) Baso % (Auto) Neut # (Auto) Lymph # (Auto) [place] # (Auto) Eos # (Auto) Baso # (Auto) PT INR APTT Sodium 131 L Potassium 3.9 Chloride 97 L Carbon Dioxide 24 BUN 54 H Creatinine 1.60 H Estimated GFR 45 L BUN/Creatinine Ratio 33.8 H Glucose 116 H Lactate 2.0 Calcium 9.1 Magnesium 2.0 Total Bilirubin 0.9 AST 23 ALT 26 Alkaline Phosphatase 68 Total Creatine Kinase 90 CK-MB (CK-2) TNP CK-MB (CK-2) Rel Index TNP Troponin I 0.013 Total Protein 7.0 Albumin 3.8 Globulin 3.2 Albumin/Globulin Ratio 1.2 Lipase 192 Urine Color Yellow Urine Appearance Cloudy Urine pH 6.5 Ur Specific [place] 1.010 Urine Protein 2+ H Urine Glucose (UA) Negative Urine Ketones Negative Urine Occult Blood 3+ H Urine Nitrate Negative Urine Bilirubin Negative Urine Urobilinogen 1.0 Ur Leukocyte Esterase 1+ H Urine RBC 10-30/hpf H Urine WBC 5-10/hpf H Ur Squamous Epith Cells 1-5 /hpf Amorphous Sediment 2+ Urine Bacteria Few (2-10) H Hyaline Casts 1-5/lpf Granular Casts 1-5/lpf Urine Mucus 1+ H Ur Culture Indicated? Specimen cultured SARS-CoV-2 (PCR) Blood Type Antibody Screen 08/14/22 08/15/22 08/15/22 18:40 04:40 04:40 WBC 9.2 RBC 3.70 L Hgb 12.2 L 11.3 L Hct 36.7 L 33.7 L MCV 91.1 MCH 30.6 MCHC 33.6 RDW 13.9 Plt Count 266 Neut % (Auto) 73.9 Lymph % (Auto) 15.7 L [place] % (Auto) 7.8 Eos % (Auto) 2.1 Baso % (Auto) 0.5 Neut # (Auto) 6800 Lymph # (Auto) 1400 [place] # (Auto) 700 Eos # (Auto) 200 Baso # (Auto) 0 PT INR APTT Sodium 130 L Potassium 3.9 Chloride 99 Carbon Dioxide 25 BUN 45 H Creatinine 1.33 H Estimated GFR 56 L BUN/Creatinine Ratio 33.8 H Glucose 96 Lactate Calcium 7.9 L Magnesium Total Bilirubin AST ALT Alkaline Phosphatase Total Creatine Kinase CK-MB (CK-2) CK-MB (CK-2) Rel Index Troponin I Total Protein Albumin Globulin Albumin/Globulin Ratio Lipase Urine Color Urine Appearance Urine pH Ur Specific [place] Urine Protein Urine Glucose (UA) Urine Ketones Urine Occult Blood Urine Nitrate Urine Bilirubin Urine Urobilinogen Ur Leukocyte Esterase Urine RBC Urine WBC Ur Squamous Epith Cells Amorphous Sediment Urine Bacteria Hyaline Casts Granular Casts Urine Mucus Ur Culture Indicated? SARS-CoV-2 (PCR) Blood Type Antibody Screen 08/15/22 09:02 WBC RBC Hgb Hct MCV MCH MCHC RDW Plt Count Neut % (Auto) Lymph % (Auto) [place] % (Auto) Eos % (Auto) Baso % (Auto) Neut # (Auto) Lymph # (Auto) [place] # (Auto) Eos # (Auto) Baso # (Auto) PT INR APTT Sodium Potassium Chloride Carbon Dioxide BUN Creatinine Estimated GFR BUN/Creatinine Ratio Glucose Lactate Calcium Magnesium Total Bilirubin AST ALT Alkaline Phosphatase Total Creatine Kinase CK-MB (CK-2) CK-MB (CK-2) Rel Index Troponin I Total Protein Albumin Globulin Albumin/Globulin Ratio Lipase Urine Color Urine Appearance Urine pH Ur Specific [place] Urine Protein Urine Glucose (UA) Urine Ketones Urine Occult Blood Urine Nitrate Urine Bilirubin Urine Urobilinogen Ur Leukocyte Esterase Urine RBC Urine WBC Ur Squamous Epith Cells Amorphous Sediment Urine Bacteria Hyaline Casts Granular Casts Urine Mucus Ur Culture Indicated? SARS-CoV-2 (PCR) Negative Blood Type Antibody Screen PFSH Medical History Bladder cancer GERD (gastroesophageal reflux disease) HTN (hypertension) Peptic ulcer disease Quit consuming alcohol in remote past Surgical History (Updated 08/15/22 @ 10:05 by Suyapa Mcqueen RN) History of urostomy Social History household members: family Tobacco & Substance Use Smoking Status: Never smoker alcohol intake: current Assessment & Plan Assessment and plan (1) Acute upper gastrointestinal bleeding: Status: Acute Plan Plan to proceed with esophagogastroduodenoscopy to rule out upper GI source of GI bleeding. We reviewed the risks and benefits and he would like proceed.
[2022-08-15] MEDS: LACTATED RINGERS 1,000 ML 42 ML IV (10:08)
--- NOTE | 2022-08-15 10:32 | PM.OP.EGD ---
Operative Date/Time/Diagnoses Date of procedure: 08/15/22 Time of procedure: 10:33 Pre-op diagnosis: Anemia and melena Post-op diagnosis: same Procedure & Clinicians Study performed: Esophagogastroduodenoscopy Same procedure as scheduled: Yes Surgeon: Giovanny Harp Procedure Notes Procedure in detail: Surgeon: Giovanny Harp MD Anesthesia: Mesfin Millan MD A timeout was performed. A bite blocked was placed. The patient was positioned in the left lateral decubitus position. Anesthesia was administered. The endoscope was inserted through the bite block and passed through the esophagus and stomach and into the duodenum. There was a rather large ulcer in the pyloric channel with an adherent blood clot. There was no active bleeding. Scope was advanced into second portion of the duodenum which appeared normal. The scope was withdrawn into the stomach. There was evidence of healing ulcers in the antrum and at the incisura. Random biopsies were taken from the antrum. The scope was retroflexed and no hiatal hernia was seen. The scope was withdrawn into the esophagus and no other abnormalities were seen. The remainder of the esophagus was normal. The scope was withdrawn. The patient was awakened and brought to recovery. Sedation time: 11 minutes Findings: Evidence of peptic ulcer disease of the antrum and pyloric channel Post-procedure Disposition: PACU
[2022-08-15] MEDS: CITALOPRAM 10 MG TABLET 20 MG PO (11:19)
[2022-08-15] MEDS: ACETAMINOPHEN 325 MG TABLET 650 MG PO (11:20)
[2022-08-15] MEDS: MEMANTINE HCL 5 MG TABLET 10 MG PO (11:20)
[2022-08-15 11:53] LABS: Hematocrit 33.5 % (41-53); Hemoglobin 11.4 g/dL (13.5-17.5)
--- NOTE | 2022-08-15 14:23 | PM.DS.1 ---
History of Present Illness History of Present Illness Chief complaint: vomiting, black stool, dark urine Narrative: 76 yo male with GERD, HTN, hyperlipidemia, history of bladder cancer status post urostomy, remote history of peptic ulcer disease 20 years ago, remote alcohol dependence (30 yrs ago) who presented to ED c/o nausea, dark stool, and dark emesis. Patient reports he awoke on August 10 and had nausea and generalized upset stomach. He states the following day his symptoms were unchanged. He notes by , his symptoms were worse. He was able to tolerate some oral intake and feels his urine output was maintained and normal. Yesterday, he states he had black emesis on 3 occasions. He continued to have nausea. Today, he awoke and passed black stool and had ongoing nausea and presented to the emergency department for further evaluation. In the ED his vitals were fairly stable. He was initially mildly tachycardic but that has since resolved. Blood pressures have been stable. Initial labs revealed a hemoglobin of 13.0 (no prior labs for comparison). Sodium was 131, BUN elevated at 54, creatinine elevated at 1.6. Prior labs were from February of 2020 with normal BUN and creatinine. He received 1 L of IV fluids, 80 mg of IV Protonix, and admission was recommended. The emergency room physician contacted on-call General surgery for consultation. Currently, patient reports he still is having nausea. He denies any hematemesis. Further bowel movements. He reports a history of GERD and takes omeprazole chronically. He denies any recent worsening of symptoms. He is a nonsmoker. No alcohol use. Was taking nightly aspirin over the last 5 years. He quit that approximately 2 weeks ago. No [id number] NSAIDs. States he is not been having any abdominal pain. He denies any chest pain, shortness a breath, lightheadedness/dizziness. Discharge Providers Provider Date of admission: 08/14/22 13:59 Discharge Date: 08/15/22 Consults: 08/14/22 15:04 Consult to Physician Routine Comment: Consulting Provider: Vikram Rehman Reason for consultation: UGIB Has provider been notified: No Discharge provider: Komal Piedra MD Summary Hospital Course Discharge Diagnosis: 1. Acute upper GI bleed secondary to pyloric ulcer, H pylori pending 2. DARÍO, improved 3. Hypertension, stable 4. Leukocytosis, likely reactive from GI bleeding, improved 5. Dementia, chronic, stable 6. Hyperlipidemia, chronic, stable 7. Generalized anxiety disorder Hospital Course: please see history and physical for further details. In brief, patient presented to the emergency department with black emesis and stool. He was admitted for probable upper GI bleed. He underwent endoscopy after general surgical consultation on August 15. Findings were peptic ulcer disease of the antrum and pyloric channel. H pylori testing was sent and is pending at this time. Patient is being discharged home with acid suppressive therapy. Dr. Harp advised that he will contact the patient should H pylori results be positive and will pursue additional treatment. Patient is asymptomatic at the time of discharge. He has had no nausea, vomiting, or melena. He is no abdominal pain. He is tolerating a diet. He is discharged in stable condition. Status at Discharge Cognitive/behavioral status at discharge: at baseline, oriented Overall status at discharge: patient is progressing back to baseline Time Spent with Patient Time spent: Greater than 30 minutes ( 35 minutes spent in consultation with patient, spouse, and in follow-up with the patient post endoscopy, as well as coordinating discharge.) Exam Vital Signs (past 8 hours): - 08/15/22 08:41 08/15/22 10:09 08/15/22 10:32 Temperature 98.3 F 98.6 F 97.3 F L Pulse Rate 82 83 83 Respiratory Rate 18 11 L 13 Blood Pressure 119/67 132/78 85/55 L Pulse Oximetry 96 94 96 Oxygen Delivery Method Room Air Nasal Cannula Oxygen Flow Rate 0 3 08/15/22 10:36 08/15/22 10:39 08/15/22 10:44 Temperature Pulse Rate 84 81 83 Respiratory Rate 13 21 21 Blood Pressure 90/60 92/56 L 101/63 Pulse Oximetry 97 98 95 Oxygen Delivery Method Nasal Cannula Nasal Cannula Room Air Oxygen Flow Rate 3 3 08/15/22 11:04 08/15/22 11:34 08/15/22 08:00 Temperature 97.6 F 98 F Pulse Rate 77 74 Respiratory Rate 18 18 Blood Pressure 113/65 117/62 Pulse Oximetry 94 97 Oxygen Delivery Method Room Air Oxygen Flow Rate 0 0 08/15/22 12:04 Temperature 98.4 F Pulse Rate 78 Respiratory Rate 18 Blood Pressure 135/72 Pulse Oximetry 97 Oxygen Delivery Method Oxygen Flow Rate 0 Oxygen Delivery Method Room Air Oxygen Flow Rate 0 Narrative Exam Narrative: GEN: Pleasant elderly male,Alert and oriented x 3, NAD HEENT:NC, Face symmetric CHEST: Respiratory excursions symmetric, CTAB CV: RRR, no M/R/G ABD: Soft, NT/ND, BT present in all 4 quadrants, no organomegaly or masses EXTR: warm, well perfused, no C/C/E SKIN: warm and dry, no rash NEURO: Alert and oriented x 3, nonfocal Objective Labs 08/15/22 11:35 08/15/22 04:40 Labs: Laboratory Results - last 24 hr 08/14/22 08/15/22 08/15/22 18:40 04:40 04:40 WBC 9.2 RBC 3.70 L Hgb 12.2 L 11.3 L Hct 36.7 L 33.7 L MCV 91.1 MCH 30.6 MCHC 33.6 RDW 13.9 Plt Count 266 Neut % (Auto) 73.9 Lymph % (Auto) 15.7 L Crook % (Auto) 7.8 Eos % (Auto) 2.1 Baso % (Auto) 0.5 Neut # (Auto) 6800 Lymph # (Auto) 1400 Crook # (Auto) 700 Eos # (Auto) 200 Baso # (Auto) 0 Sodium 130 L Potassium 3.9 Chloride 99 Carbon Dioxide 25 BUN 45 H Creatinine 1.33 H Estimated GFR 56 L BUN/Creatinine Ratio 33.8 H Glucose 96 Calcium 7.9 L SARS-CoV-2 (PCR) 08/15/22 08/15/22 09:02 11:35 WBC RBC Hgb 11.4 L Hct 33.5 L MCV MCH MCHC RDW Plt Count Neut % (Auto) Lymph % (Auto) Crook % (Auto) Eos % (Auto) Baso % (Auto) Neut # (Auto) Lymph # (Auto) Crook # (Auto) Eos # (Auto) Baso # (Auto) Sodium Potassium Chloride Carbon Dioxide BUN Creatinine Estimated GFR BUN/Creatinine Ratio Glucose Calcium SARS-CoV-2 (PCR) Negative PFSH Medical History Bladder cancer Dementia Generalized anxiety disorder GERD (gastroesophageal reflux disease) H/O hyperlipidemia HTN (hypertension) Peptic ulcer disease Quit consuming alcohol in remote past Quit using tobacco in remote past Surgical History (Updated 08/15/22 @ 10:05 by Suyapa Mcqueen RN) History of urostomy Social History household members: spouse and family Smoking Status: Never smoker alcohol intake: current Discharge Plan Discharge Plan Patient Disposition: Home Provider Discharge Comment: You were diagnosed with a pyloric ulcer (stomach). They are testing it for H pylori (a bacteria). If it is present, you will need additional medications for treatment. Dr. Harp will call you if you do have H pylori. Continue to take pantoprazole (acid blocking medication) as it will help heal the ulcer. Take it twice a day for one month, then once a day. Recommendations: Do not take aspirin, naproxen, or ibuprofen Eat a healthy diet Avoid alcohol and tobacco products Return to the ED for: Black or tarry stool; vomit that looks like coffee grounds; bloody or maroon colored stool Inability to hold down food/fluids Lightheadedness/dizziness/shortness of breath Nursing Discharge Comment: You have a urine culture pending. Ask your doctor about the results. Discharge orders & Medications Prescriptions: New melatonin 3 mg Tablet 3 mg PO BEDTIME Qty: 30 0RF pantoprazole 40 mg Tablet,Delayed Release (Dr/Ec) 40 mg PO 2XD Qty: 60 0RF memantine [Namenda] 5 mg Tablet 10 mg PO BID Qty: 30 0RF Continued lovastatin 10 MG tablet 40 mg PO Q ARSH Qty: 0 LISINOPRIL (Zestril / Prinivil) 20 mg PO Q DAY Qty: 0 donepezil 5 mg Tablet 5 mg PO DAILY citalopram 20 mg Tablet 20 mg PO DAILY Discontinued aspirin [Aspir-81] 81 mg Tablet,Delayed Release (Dr/Ec) 81 mg PO DAILY Diet/Activity/Treatments Diet: Diet as Tolerated and Regular Activity: As tolerated Oxygen: N/A Visit Report/Discharge Packet Instructions: DI for Gastroesophageal Reflux Disease (GERD), DI for Gastric Ulcer, How to Prevent Falls, DI for Acute Kidney Injury, EGD Discharge Instructions Stand Alone Forms: Patient Portal/API, EGD Result: Isld Surg Quality VTE Deep Vein Thrombosis/Pulmonary Embolism Present on Admission: No
--- NOTE | 2022-08-15 14:59 | CM.DANOTE ---
Discharge Planning/Care Management CM Discharge Assessment Start: 08/15/22 14:55 Freq: Status: Active Protocol: Document 08/15/22 14:55 PORTER (Rec: 08/15/22 14:59 PORTER [id number]) Discharge Planning Assessment Assigned Industrial Seamstress BRIAN Burns DPOA/Assigned Designee Name Mari Montes, spouse Contact Information [phone] Advance Directives? No History Provided By Patient,Family Member,Medical Record Prior Living Arrangements House Household Members spouse,family Type of transporation used prior to Relies on Others admit Independent with ADL's Yes Is patient alert and oriented? No: Dementia Barriers to Discharge No Comment 76 yo M presented to the ER with black emesis and stool. He was admitted for probable upper GI bleed. He underwent endoscopy after general surgical consultation; results were peptic ulcer disease of the antrum and pyloric channel . patient now asymptomatic and discharged back home w/spouse and supportive family. No addtl needs identified, close outpatient follow up advised Discharge Plan Home Transportation Arrangement Family Referrals Initiated None needed
--- NOTE | 2022-08-15 15:05 | PC.NURSE ---
Discharge: Pt feels ready to d/c to home. Pt has tolerated his diet w/out problems. Feels improved since admit to the hospital. Lower abd tenderness but no pain. Reviewed d/c packet with pt and spouse. His bp has been sl low. Lisinopril has not been given. Discussed parameter for bp. Given rx for protonix. Reviewed d/c packet, questions answered. Pt feels ready to d/c to home. Pt d/c to home via auto w/spouse.
== END 2022-08-15 15:00 | disposition home or self-care (01) ==
LOC: ED 13:22 → AC 14:03
PROVIDERS: Surgery; Admitting Provider Family Medicine; Emergency Provider Emergency Medicine; Referring Provider Emergency Medicine; Visit Provider Family Medicine
PROC: 0DJ08ZZ Inspection of Upper Intestinal Tract, Via Natural or Artificial Opening Endoscopic (ICD-10-PCS; CPT 43235; principal; 2022-08-15 10:00)
DX: K25.4 Chronic or unspecified gastric ulcer with hemorrhage (principal); R42 Dizziness and giddiness; N17.9 Acute kidney failure, unspecified; I10 Essential (primary) hypertension; K21.9 Gastro-esophageal reflux disease without esophagitis; E86.0 Dehydration; D72.829 Elevated white blood cell count, unspecified; F03.90 Unspecified dementia, unspecified severity, without behavioral disturbance, psychotic disturbance, mood disturbance, and anxiety; E78.5 Hyperlipidemia, unspecified; F41.9 Anxiety disorder, unspecified
CPT/HCPCS: 43239; 36415; 74022; 80048; 80053; 81001; 82550; 83605; 83690; 83735; 84484; 85014; 85018; 85025; 85610; 85730; 86850; 86900; 86901; 87086; 87635; 93005; 93010; 96361; 96374; 96376; 99231; 99284; C9803; G0378; C9113; J2704; J3010; J7050

== ENCOUNTER 2022-10-22 07:04 | Day surgery (SDC) | payer OTHER, SELFPAY ==
[2022-08-14 15:08] VITALS: BMI 30.1
[2022-10-22] VITALS (7 sets, daily range): BP systolic 89–189; BP diastolic 61–108; PULSE 64–89; RESP 12–18; TEMP 36.1–36.7; O2SAT 90–94; BMI 29.0
--- NOTE | 2022-10-22 | PATH_ITS ---
[facility] Accession Number: [id number] No. of containers..01 Tissue . 01 Material submitted: . esophagus - DISTAL ESOPHAGUS . 01 Diagnosis: Distal Esophagus, Biopsy: Squamocolumnar junctional mucosa with focal specialized intestinal metaplasia; please see comment. Negative for dysplasia or malignancy. [facility] 10/30/2022 1029 Local . 01 Comment: The histologic findings in the distal esophagus would be consistent with Gutierrez's esophagus in the appropriate endoscopic setting. . 01 Electronically signed: . Darien Taylor MD, PhD, Pathologist NPI- [id number] . 01 Gross description: . DISTAL ESOPHAGUS: Received in formalin are 4 fragment(s) of gonzalez, soft tissue measuring 0.1 x 0.1 x 0.1 cm to 0.2 x 0.2 x 0.2 cm submitted entirely in 1 cassette(s) /RHIANNON 10/27/2022 1855 Local . 01 Pathologist provided ICD-10: K22.70 . 01 CPT . 845961 Specimen Comment: A courtesy copy of this report has been sent to [phone] Performed at: 01 [facility] [address] [place] [address] [id number] MD Vinnie Hills MD Phone: [phone]
[2022-10-22] MEDS: LACTATED RINGERS 1,000 ML 42 ML IV (07:55)
--- NOTE | 2022-10-22 08:24 | PM.HP.1 ---
History of Present Illness History of Present Illness Date Patient Seen: 10/22/22 Time Patient Seen: 08:24 Chief complaint: EGD w/poss bx Narrative: Som is a 77-year-old man who had an EGD in July for anemia with findings of peptic ulcers. He feels better now and he feels like his ulcers have healed. PFSH Medical History Bladder cancer Dementia Generalized anxiety disorder GERD (gastroesophageal reflux disease) H/O hyperlipidemia HTN (hypertension) Peptic ulcer disease Quit consuming alcohol in remote past Quit using tobacco in remote past Surgical History (Updated 08/15/22 @ 10:05 by Suyapa Mcqueen RN) History of urostomy Social History household members: spouse and family Smoking Status: Never smoker alcohol intake: current Meds Home Medications and Allergies Home Medications Medication Instructions Recorded Confirmed Type LISINOPRIL (Zestril / Prinivil) 20 mg PO Q DAY ##0 06/10/10 10/22/22 History lovastatin 10 mg tablet 40 mg PO Q ARSH ##0 06/10/10 08/14/22 History citalopram 20 mg tablet 20 mg PO DAILY 08/14/22 10/22/22 History donepezil 5 mg tablet 5 mg PO DAILY 08/14/22 10/22/22 History melatonin 3 mg tablet 3 mg PO BEDTIME #30 tabs 08/15/22 10/22/22 Rx memantine 5 mg tablet (Namenda) 10 mg PO BID #30 tabs 08/15/22 10/22/22 Rx pantoprazole 40 mg tablet,delayed 40 mg PO 2XD #60 tabs 08/15/22 10/22/22 Rx release Allergies Allergy/AdvReac Type Severity Reaction Status Date / Time No Known Drug Allergies Allergy Verified 10/22/22 07:19 Exam Vital Signs (past 8 hours): - 10/22/22 07:43 10/22/22 07:46 10/22/22 07:52 Temperature 97.1 F L Pulse Rate 89 73 Respiratory Rate 17 Blood Pressure 189/108 H 154/89 H Pulse Oximetry 94 Oxygen Delivery Method Room Air Room Air Oxygen Delivery Method Room Air Const General: healthy appearing Assessment & Plan Assessment and plan (1) History of peptic ulcer: Status: Acute Plan We reviewed the risks and benefits of an EGD for history of ulcers and he would like to proceed.
--- NOTE | 2022-10-22 08:47 | PM.OP.EGD ---
Operative Date/Time/Diagnoses Date of procedure: 10/22/22 Time of procedure: 08:47 Pre-op diagnosis: History of peptic ulcers Post-op diagnosis: same Procedure & Clinicians Study performed: Esophagogastroduodenoscopy Same procedure as scheduled: Yes Surgeon: Giovanny Harp Procedure Notes Procedure in detail: Surgeon: Giovanny Harp MD Anesthesia: Alessandro Lopez timeout was performed. A bite blocked was placed. The patient was positioned in the left lateral decubitus position. Anesthesia was administered. The endoscope was inserted through the bite block and passed through the esophagus and stomach and into the duodenum. The duodenal mucosa appeared normal. The scope was withdrawn into the duodenal bulb and abnormalities were seen. The scope was withdrawn into the stomach. The pyloric channel ulcers were healing and almost undetectable. The rest of the stomach was normal. The scope was retroflexed and no other abnormalities were seen. The scope was withdrawn into the esophagus and a tongue of salmon-colored mucosa was noted and multiple biopsies were taken from area of abnormality. The remainder of the esophagus was normal. The scope was withdrawn. The patient was awakened and brought to recovery. Sedation time: 7 minutes Findings: Healing pyloric channel ulcers and a salmon-colored patch of esophageal mucosa Post-procedure Disposition: PACU
== END 2022-10-22 09:22 | disposition home or self-care (01) ==
PROVIDERS: PCP Internal Medicine; Referring Provider Surgery; Visit Provider Surgery
PROC: 0DJ08ZZ Inspection of Upper Intestinal Tract, Via Natural or Artificial Opening Endoscopic (ICD-10-PCS; CPT 43235; principal; 2022-10-22 08:15)
DX: K22.70 Barrett's esophagus without dysplasia (principal); Z87.11 Personal history of peptic ulcer disease
CPT/HCPCS: 43239; J2704

== ENCOUNTER → 2024-12-18 09:25 | Outpatient (CLI) | payer MEDICARE, SELFPAY ==
[2022-08-14 15:08] VITALS: BMI 30.1
--- NOTE | 2024-12-18 09:26 | DI.CT.S_ITS ---
PROCEDURE: CT CHEST WO CON INDICATIONS: screening for lung cancer TECHNIQUE: Noncontrast 5 mm thick sections acquired from the pulmonary apices to the posterior costophrenic angles. 1 mm lung window, 5 mm thick coronal and sagittal and 7 mm axial MIP reformats were then acquired. For radiation dose reduction, the following was used: automated exposure control, adjustment of mA and/or kV according to patient size. COMPARISON: None. FINDINGS: Image quality: Diagnostic. Lower Neck: No enlarged lymph nodes. Thyroid: No thyroid nodules which require sonographic follow up, per consensus guidelines. Axillae: No enlarged lymph nodes. Chest Wall: Unremarkable. Bones: Mild age-indeterminate compression deformities of the T8 and T9 vertebral bodies. Multilevel degenerative changes of the spine. Lungs and Pleura: No pneumothorax or pleural effusions. Scattered pulmonary micronodules (<6 mm). No suspicious pulmonary nodules. No focal consolidation. Heart: Heart size is normal. No pericardial effusion. Severe coronary artery calcifications. Thoracic Vessels: The aorta and pulmonary arteries demonstrate normal size. Severe atherosclerotic calcification of the thoracic aorta. Mediastinum and Marissa: No enlarged lymph nodes. Esophagus: Small gastric hiatal hernia. Upper Abdomen: Numerous hypodensities in the liver, favored to reflect cysts although incompletely evaluated due to lack of IV contrast. Multiple renal cystic lesions. Right nephrolithiasis. Visualized upper abdomen solid organs and bowel loops appear otherwise normal. IMPRESSION: No suspicious pulmonary nodules. Lung-RADS 2; recommend continued annual screening if eligible. Dictated by: Xena Mitchell M.D. on 12/18/2024 at 20:49 Approved by: Xena Mitchell M.D. on 12/18/2024 at 20:57
== END ==
LOC: CT 09:26
PROVIDERS: PCP Internal Medicine; Referring Provider Internal Medicine; Visit Provider Internal Medicine
DX: Z12.2 Encounter for screening for malignant neoplasm of respiratory organs (principal); I25.10 Atherosclerotic heart disease of native coronary artery without angina pectoris; I70.0 Atherosclerosis of aorta; K44.9 Diaphragmatic hernia without obstruction or gangrene; N28.1 Cyst of kidney, acquired; N20.0 Calculus of kidney
CPT/HCPCS: 71250

== ENCOUNTER 2025-02-13 10:10 | Inpatient (IN) | payer MEDICARE, SELFPAY ==
[2022-08-14 15:08] VITALS: BMI 30.1
[2025-02-13] VITALS (13 sets, daily range): BP systolic 116–155; BP diastolic 60–82; PULSE 74–115; RESP 15–29; TEMP 36.9–37.7; O2SAT 91–96; BMI 29.7
--- NOTE | 2025-02-13 10:12 | ED.SOB ---
HPI - SOB/Dyspnea General Chief Complaint: Shortness of Breath/Dyspnea Stated Complaint: hypoxia Time Seen by Provider: 02/13/25 10:12 History of Present Illness HPI Narrative: 79-year-old male history of GERD, hypertension, dyslipidemia, history of bladder cancer status post urostomy, history of peptic ulcer disease 20 years ago, remote alcohol dependence 30 years ago presents with cough, shortness of breath, dyspnea on exertion, for the past few days. He denies any chest pain, back pain, abdominal pain, nausea, vomiting, did have diarrhea yesterday. Other than what is stated 14 point review of system is negative. Related Data Home Medications ?Medication ?Instructions ?Recorded ?Confirmed LISINOPRIL (Zestril / Prinivil) 20 mg PO Q DAY ##0 06/10/10 10/22/22 lovastatin 10 mg tablet 40 mg PO Q ARSH ##0 06/10/10 08/14/22 citalopram 20 mg tablet 20 mg PO DAILY 08/14/22 10/22/22 donepezil 5 mg tablet 5 mg PO DAILY 08/14/22 10/22/22 Previous Rx's ?Medication ?Instructions ?Recorded melatonin 3 mg tablet 3 mg PO BEDTIME #30 tabs 08/15/22 memantine 5 mg tablet (Namenda) 10 mg (2 x 5 mg) PO BID #30 tabs 08/15/22 pantoprazole 40 mg tablet,delayed 40 mg PO 2XD #60 tabs 08/15/22 release Allergies Allergy/AdvReac Type Severity Reaction Status Date / Time No Known Drug Allergies Allergy Verified 02/13/25 10:20 Review of Systems Review of Systems ROS Unobtainable: All systems reviewed & are unremarkable except as noted in HPI and below Patient History Medical History (Updated 02/13/25 @ 11:19 by Phill Weeks DO) Dementia Generalized anxiety disorder Quit using tobacco in remote past H/O hyperlipidemia Quit consuming alcohol in remote past Peptic ulcer disease Bladder cancer HTN (hypertension) GERD (gastroesophageal reflux disease) Surgical History (Updated 08/15/22 @ 10:05 by Suyapa Mcqueen RN) History of urostomy Social History household members: spouse and family Smoking Status: Former smoker alcohol intake: current alcohol intake frequency: holidays/special occasions only Exam Narrative Exam Narrative: GENERAL: [79] year old patient appears stated age. Well-developed patient, in mild distress. HEAD: Atraumatic. Normocephalic. EYES: Pupils equal round and reactive. Extraocular motions intact. No scleral icterus. No injection or drainage. ENT: Nose without bleeding, purulent drainage. Throat without erythema, tonsillar hypertrophy or exudate. Airway patent. NECK: Trachea midline. Non tender CARDIOVASCULAR: Regular rate and rhythm without murmurs, gallops, or rubs. RESPIRATORY: Coarse rhonchi right lower GASTROINTESTINAL: Abdomen soft, non-tender, nondistended. EXTREMITIES: No edema or joint tenderness. BACK: Nontender without deformity or crepitance. No flank tenderness. NEURO: AOx3. SKIN: No rash or erythema of visible areas Initial Vital Signs Initial Vital Signs: Vital Signs Temperature 98.4 F 02/13/25 10:10 Pulse Rate 115 H 02/13/25 10:10 Respiratory Rate 16 02/13/25 10:10 Blood Pressure 142/63 H 02/13/25 10:10 Pulse Oximetry 93 02/13/25 10:10 Oxygen Delivery Method Room Air 02/13/25 10:10 Course Orders Ordered: ED Orders 02/13/25 10:18 CT angio chest PE protocol Stat EKG-12 Lead Stat 02/13/25 10:26 Complete Blood Count AUTO DIFF Stat Comprehensive Metabolic Panel Stat Covid-19 + FLU A/B + RSV - PCR Stat Lactate (Lactic Acid) Stat Lipase Stat Magnesium Stat NT-proBNP (BNP-Adult 18+) Stat Troponin I Stat 02/13/25 10:52 Blood Culture Stat 02/13/25 11:12 Ictotest Urine Stat Urine Culture Stat Urine Microscopic Stat Albuterol (Albuterol 2.5 Mg/3 Ml Neb (Adult)) 2.5 mg INH [id number] PRN PRN Reason: Shortness Of Breath Discontinued Medications Albuterol/Ipratropium (Albuterol/Ipratropium 3 Ml Ampul) 3 ml INH NOW ONE Stop: 02/13/25 10:21 Last Admin: 02/13/25 10:22 Dose: Not Given Documented By: SAT Albuterol/Ipratropium (Albuterol/Ipratropium 3 Ml Ampul) 3 ml INH NOW ONE Stop: 02/13/25 10:22 Last Admin: 02/13/25 10:40 Dose: 3 ml Documented By: HARRISON Ceftriaxone Sodium 1,000 mg/ (Sodium Chloride) 100 mls @ 200 mls/hr IV NOW ONE Stop: 02/13/25 11:16 Last Infusion: 02/13/25 12:07 Dose: Infused Documented By: Admin: 02/13/25 11:27 Dose: 200 mls/hr Documented By: JOSIE Azithromycin 500 mg/ Dextrose 250 mls @ 250 mls/hr IV NOW ONE Stop: 02/13/25 11:16 Last Admin: 02/13/25 12:10 Dose: 250 mls/hr Documented By: JOSIE Vital Signs Vital signs: Vital Signs - 8 hr 02/13/25 10:10 02/13/25 10:18 02/13/25 10:19 Temperature 98.4 F Pulse Rate 115 H 109 H 107 H Respiratory Rate 16 21 15 Blood Pressure 142/63 H Pulse Oximetry 93 93 91 Oxygen Delivery Method Room Air Fraction of Inspired Oxygen 02/13/25 10:19 02/13/25 10:36 02/13/25 10:40 Temperature Pulse Rate 100 H 94 H Respiratory Rate 21 16 Blood Pressure 142/63 H Pulse Oximetry 93 96 Oxygen Delivery Method Room Air Fraction of Inspired Oxygen 21 02/13/25 11:00 02/13/25 11:30 02/13/25 12:00 Temperature Pulse Rate 100 H 97 H 95 H Respiratory Rate 22 Blood Pressure Pulse Oximetry 93 92 93 Oxygen Delivery Method Fraction of Inspired Oxygen 02/13/25 12:06 02/13/25 12:06 Temperature Pulse Rate 96 H Respiratory Rate 22 Blood Pressure 135/60 Pulse Oximetry 92 Oxygen Delivery Method Fraction of Inspired Oxygen MDM - SOB/Dyspnea Lab Data 02/13/25 10:26 02/13/25 10:26 Labs: Lab Results 02/13/25 02/13/25 Range/Units 10:26 11:12 WBC 17.5 H (4.5-11.0) X10^3/uL RBC 4.54 (4.5-5.9) X10^6/uL Hgb 14.1 (13.5-17.5) g/dL Hct 41.9 (41-53) % MCV 92.2 (80-100) fL MCH 31.0 (26-34) PG MCHC 33.6 (30-36) % RDW 13.6 (11.6-14.8) % Plt Count 297 (150-400) X10^3/uL Neut % (Auto) Not Reportable Lymph % (Auto) Not Reportable [place] % (Auto) Not Reportable Eos % (Auto) Not Reportable Baso % (Auto) Not Reportable Lymph # (Auto) Not Reportable [place] # (Auto) Not Reportable Baso # (Auto) Not Reportable Total Counted 100 Seg Neutrophils % 74.0 H (38-70) % Band Neutrophils % 10.0 H (3-7) % Lymphocytes % (Manual) 5.0 L (25-45) % Atypical Lymphs % 6.0 H ( - 0) % Monocytes % (Manual) 5.0 (2-11) % Neutrophils # (Manual) 93077 H (3979-1607) /uL RBC Morphology Normal morphology Sodium 131 L (137-145) mmol/L Potassium 4.3 (3.4-5.1) mmol/L Chloride 100 (98-107) mmol/L Carbon Dioxide 17 L (22-32) mmol/L BUN 49 H (9-20) mg/dL Creatinine 1.91 H (0.66-1.25) mg/dL Estimated GFR 35 L (>60) mL/min BUN/Creatinine Ratio 25.7 H (6-22) Glucose 121 H (70-99) mg/dL Lactate 2.1 (0.7-2.1) mmol/L Calcium 9.0 (8.4-10.2) mg/dL Magnesium 2.0 (1.6-2.3) mg/dL Total Bilirubin 2.0 H (0.2-1.3) mg/dL AST 37 (17-59) IU/L ALT 27 (<50) IU/L Alkaline Phosphatase 73 (38-126) U/L Troponin I < 0.012 (0.01-0.034) ng/mL NT-Pro-B Natriuret Pep 304 (<450) pg/mL Total Protein 8.8 H (6.3-8.2) g/dL Albumin 4.5 (3.5-5.0) g/dL Globulin 4.3 H (1.7-4.1) g/dL Albumin/Globulin Ratio 1.0 (1.0-2.8) Lipase 141 (23-300) U/L Ur Bilirubin Confirm Negative (Negative) Urine RBC 30-100/hpf H (0-5/HPF) Urine WBC 30-100/hpf H (0-5/HPF) Ur Squamous Epith Cells 5-10 /hpf H (0-5/HPF) Amorphous Sediment 2+ Urine Bacteria Many (>30) H (None) Hyaline Casts 0-1/lpf (None) Ur Culture Indicated? Cult not indicated Vol Urine Centrifuged 10ml (spun) SARS-CoV-2 (PCR) Negative (Negative) Influenza A (RT-PCR) Flu a negative (NEGATIVE) Influenza B (RT-PCR) Flu b negative (NEGATIVE) RSV (PCR) Negative (Negative) Urine Dip Bedside Urine Glucose Negative Bedside Urine Bilirubin + 1 Bedside Urine Ketone - Negative Urine Specific [place] 1.010 Bedside Urine Occult Blood - Negative Bedside Urine pH 7.0 Bedside Urine Protein + 30 Bedside Urine Urobilinogen - Negative Bedside Urine Nitrite - Negative Bedside Urine Leukocytes ++ [address] scan - chest: Radiologist's Impression: [address] [address] [address] Scan Report Signed Patient: Som Montes MR#: [id number] : 1945 Acct:[id number] Age/Sex: 79 / M Date of Service: 02/13/25 Loc: ED Accession Number: [id number] Procedure: CT angio chest PE protocol Ordering Provider: Phill Weeks D.O. PROCEDURE: CT ANGIO CHEST PE PROTOCOL INDICATIONS: sob low 02 cough TECHNIQUE: After the administration of intravenous contrast, 2 mm thick sections acquired from the pulmonary apices to the posterior costophrenic angles. 3-dimensional maximum intensity projection (MIP) coronal and sagittal reformats were then acquired through the thorax. For radiation dose reduction, the following was used: automated exposure control, adjustment of mA and/or kV according to patient size. COMPARISON: [facility], CT, CT CHEST WO CON, 12/18/2024, 9:45. FINDINGS: Image quality: Diagnostic. Pulmonary arteries: Pulmonary arteries are normal in size, and demonstrate no intraluminal filling defects to suggest central pulmonary embolism. Lower Neck: No enlarged lymph nodes. Thyroid: No thyroid nodules which require sonographic follow up, per consensus guidelines. Axillae: No enlarged lymph nodes. Chest Wall: Unremarkable. Bones: Unchanged mild T8 and T9 vertebral body compression fractures. No new compression fracture is seen. Lungs and Pleura: No pneumothorax or pleural effusions. Moderate centrilobular emphysema. Dependent consolidations in the right upper and right lower lobes. No consolidation or suspicious nodules. Heart: Heart size is normal. No pericardial effusion. Three-vessel coronary artery calcifications. Thoracic Vessels: No aortic aneurysm. Mediastinum and Marissa: Numerous small mediastinal lymph nodes are nonspecific and may be reactive. Esophagus: No wall thickening. Small hiatal hernia. Upper Abdomen: Multiple hepatic cysts appear unchanged. Stable left renal cyst. IMPRESSION: 1. No acute pulmonary embolus. 2. Consolidations in the posterior right upper and lower lobes, suspicious for pneumonia or aspiration. 3. Moderate centrilobular emphysema. 4. Moderate to severe coronary artery calcifications. ECG Data Interpretation: NSR HR 100 [place] 140 QRS [address]-t wave change Unchanged from 07/25/22 [facility] Narrative Medical decision making narrative: All lab work, vital signs, nurse triage note, medication list, previous ER visits, and all imaging studies reviewed. CT chest showed no acute PE. Consolidation in the posterior right upper and lower lobe suspicious for pneumonia or aspiration. Moderate central lobar emphysema. Moderate to severe coronary artery calcification. WBC 17.5 hemoglobin 14.1 platelets 297 sodium 131 potassium 4 point chloride 100 CO2 17 BUN 49 creatinine 1.91 glucose 121 magnesium 2 point T bili 2.0 troponin less than 0.012 and [id number]. Lactic acid 2.1 Patient given DuoNebs Rocephin Zithromax. Case d/w hospitalist for admission. Discharge Plan Departure Patient Disposition: Admitted as Observation Clinical Impression: Pneumonia Admit Date/Time: 02/13/25 12:45 Admit Provider: Morgan Florentino
--- NOTE | 2025-02-13 10:18 | DI.CT.S_ITS ---
PROCEDURE: CT ANGIO CHEST PE PROTOCOL INDICATIONS: sob low 02 cough TECHNIQUE: After the administration of intravenous contrast, 2 mm thick sections acquired from the pulmonary apices to the posterior costophrenic angles. 3-dimensional maximum intensity projection (MIP) coronal and sagittal reformats were then acquired through the thorax. For radiation dose reduction, the following was used: automated exposure control, adjustment of mA and/or kV according to patient size. COMPARISON: [facility], CT, CT CHEST WO [facility], 12/18/2024, 9:45. FINDINGS: Image quality: Diagnostic. Pulmonary arteries: Pulmonary arteries are normal in size, and demonstrate no intraluminal filling defects to suggest central pulmonary embolism. Lower Neck: No enlarged lymph nodes. Thyroid: No thyroid nodules which require sonographic follow up, per consensus guidelines. Axillae: No enlarged lymph nodes. Chest Wall: Unremarkable. Bones: Unchanged mild T8 and T9 vertebral body compression fractures. No new compression fracture is seen. Lungs and Pleura: No pneumothorax or pleural effusions. Moderate centrilobular emphysema. Dependent consolidations in the right upper and right lower lobes. No consolidation or suspicious nodules. Heart: Heart size is normal. No pericardial effusion. Three-vessel coronary artery calcifications. Thoracic Vessels: No aortic aneurysm. Mediastinum and Marissa: Numerous small mediastinal lymph nodes are nonspecific and may be reactive. Esophagus: No wall thickening. Small hiatal hernia. Upper Abdomen: Multiple hepatic cysts appear unchanged. Stable left renal cyst. IMPRESSION: 1. No acute pulmonary embolus. 2. Consolidations in the posterior right upper and lower lobes, suspicious for pneumonia or aspiration. 3. Moderate centrilobular emphysema. 4. Moderate to severe coronary artery calcifications. Approved by: Wilmar Crowell M.D. on 02/13/2025 at 11:01
--- NOTE | 2025-02-13 10:24 | EKG_ITS ---
[facility] [address] [place] [address] Test Date: 2025-02-13 Pat Name: Som Montes Department: [facility] Room: Gender: Male [employer] Supervisor: : 1945 Requested By: Order Number: [id number] Reading MD: Morgan Florentino Measurements Intervals [place] Rate: 100 P: 39 ID: 140 QRS: 5 QRSD: 82 T: 40 QT: 332 QTc: 428 Interpretive Statements Normal sinus rhythm Electronically Signed On 02-13-2025 19:04:23 PST by Morgan Florentino
[2025-02-13 10:36] LABS: Hematocrit 41.9 % (41-53); Hemoglobin 14.1 g/dL (13.5-17.5); Mean Corpuscular HGB Conc 33.6 % (30-36); Mean Corpuscular Hemoglobin 31.0 PG (26-34); Mean Corpuscular Volume 92.2 fL (80-100); Platelet Count 297 X10^3/uL (150-400)
[2025-02-13 10:37] LABS: Add Manual Diff / Slide Review YES
[2025-02-13] MEDS: ALBUTEROL/IPRATROPIUM 3 ML AMPUL INH (10:40)
[2025-02-13 10:48] LABS: Lactate (Lactic Acid) 2.1 mmol/L (0.7-2.1)
[2025-02-13 10:49] LABS: Alanine Aminotransferase 27 IU/L (<50); Albumin 4.5 g/dL (3.5-5.0); Albumin Globulin Ratio 1.0 (1.0-2.8); Alkaline Phosphatase 73 U/L (38-126); Atypical Lymphocytes Percent 6.0 %; Band Neutrophils Percent 10.0 % (3-7); Blood Urea Nitrogen 49 mg/dL (9-20); Calcium 9.0 mg/dL (8.4-10.2); Carbon Dioxide 17 mmol/L (22-32); Chloride 100 mmol/L (98-107); Estimated Glomerular Filt Rate 35 mL/min (>60); Globulin 4.3 g/dL (1.7-4.1); Glucose 121 mg/dL (70-99); Lipase 141 U/L (23-300); Lymphocytes Percent Manual 5.0 % (25-45); Magnesium 2.0 mg/dL (1.6-2.3); Monocytes Percent Manual 5.0 % (2-11); Neutrophils Absolute Manual 14700 /uL (3000-5900); Potassium 4.3 mmol/L (3.4-5.1); Segmented Neutrophils Percent 74.0 % (38-70); Sodium 131 mmol/L (137-145); Total Cells Counted 100; Total Protein 8.8 g/dL (6.3-8.2)
[2025-02-13 10:50] LABS: RBC Morphology Normal Morphology
[2025-02-13 10:55] LABS: HEMOLYSIS 86 (0-50)
[2025-02-13 11:00] LABS: NT-proBNP (BNP-Adult 18+) 304 pg/mL (<450); Troponin I < 0.012 ng/mL (0.01-0.034)
[2025-02-13 11:11] LABS: Influenza A - CEPHEID Flu A NEGATIVE (NEGATIVE); Influenza B - CEPHEID Flu B NEGATIVE (NEGATIVE)
[2025-02-13 11:42] LABS: Ictotest Urine Negative (Negative)
[2025-02-13 11:42] LABS: COVID-19 CEPHEID 4-PLEX PCR Negative (Negative)
[2025-02-13 11:47] LABS: Culture Indicated Urine Cult Not Indicated
[2025-02-13 12:07] LABS: Reflexed Lactate in 2 Hours Y
[2025-02-13] MEDS: AZITHROMYCIN 500 MG in DEXTROSE 5% IN WATER 250 ML 250 MG IV (12:10)
--- NOTE | 2025-02-13 14:03 | PM.HP.1 ---
History of Present Illness History of Present Illness Date Patient Seen: 02/13/25 Time Patient Seen: 14:30 Chief complaint: hypoxia Narrative: The patient is a 79-year-old male who was ill since colonoscopy last Wednesday. He was had a cough and dyspnea. At the walk-in clinic he was found to be hypoxic and sent to the ED. he was a history of dementia, hypertension, dyslipidemia, bladder cancer with urostomy, and peptic ulcer disease. The patient notes that he does have dementia and understands that he was some memory issues. He lives in town, with his . He denies a productive cough, fevers, or chills. No chest pain. He was had a poor appetite. SaO2 is improved in the ED, there was an issue with capnography readings. ED: IV antibiotics given. [facility] Medical History Dementia Generalized anxiety disorder Quit using tobacco in remote past H/O hyperlipidemia Quit consuming alcohol in remote past Peptic ulcer disease Bladder cancer HTN (hypertension) GERD (gastroesophageal reflux disease) Surgical History History of urostomy Social History household members: spouse and family Smoking Status: Former smoker alcohol intake: current Meds Home Medications and Allergies Home Medications ?Medication ?Instructions ?Recorded ?Confirmed ?Type LISINOPRIL (Zestril / Prinivil) 20 mg PO Q DAY ##0 06/10/10 02/13/25 History lovastatin 10 mg tablet 40 mg PO Q ARSH ##0 06/10/10 02/13/25 History citalopram 20 mg tablet 20 mg PO DAILY 08/14/22 02/13/25 History donepezil 5 mg tablet 5 mg PO DAILY 08/14/22 02/13/25 History melatonin 3 mg tablet 3 mg PO BEDTIME #30 tabs 08/15/22 02/13/25 Rx Allergies Allergy/AdvReac Type Severity Reaction Status Date / Time No Known Drug Allergies Allergy Verified 02/13/25 10:20 Review of Systems Review of Systems Narrative: All else reviewed and otherwise unremarkable except as noted in the history and physical. Exam Vital Signs (past 8 hours): - 02/13/25 10:10 02/13/25 10:18 02/13/25 10:19 Temperature 98.4 F Pulse Rate 115 H 109 H 107 H Respiratory Rate 16 21 15 Blood Pressure 142/63 H Pulse Oximetry 93 93 91 Oxygen Delivery Method Room Air Fraction of Inspired Oxygen 02/13/25 10:19 02/13/25 10:36 02/13/25 10:40 Temperature Pulse Rate 100 H 94 H Respiratory Rate 21 16 Blood Pressure 142/63 H Pulse Oximetry 93 96 Oxygen Delivery Method Room Air Fraction of Inspired Oxygen 21 02/13/25 11:00 02/13/25 11:30 02/13/25 12:00 Temperature Pulse Rate 100 H 97 H 95 H Respiratory Rate 22 Blood Pressure Pulse Oximetry 93 92 93 Oxygen Delivery Method Fraction of Inspired Oxygen 02/13/25 12:06 02/13/25 12:06 02/13/25 12:30 Temperature Pulse Rate 96 H Respiratory Rate 22 Blood Pressure 135/60 139/73 Pulse Oximetry 92 Oxygen Delivery Method Fraction of Inspired Oxygen 02/13/25 12:30 02/13/25 13:00 02/13/25 13:00 Temperature Pulse Rate 99 H 98 H Respiratory Rate 27 H 29 H Blood Pressure 118/64 Pulse Oximetry 91 92 Oxygen Delivery Method Fraction of Inspired Oxygen Fraction of Inspired Oxygen 21 SaO2/FiO2 Ratio 442 Oxygen Delivery Method Room Air Narrative Exam Narrative: NAD, alert and oriented, fluent speech, calm. Normocephalic skull, EOMI, anicteric sclera, symmetric pupils. Oropharynx unremarkable, no droop. Neck supple, midline trachea, no adenopathy. Lungs clear, normal rate and effort. Heart regular, no murmur gallop or rub. Abdomen is soft, non distended and non tender. Extremities are free of edema. Skin is free of rash or lesions. Joints are not swollen or deformed. Judgment appears to be normal. Objective ECG Impression: Intervals [place] Rate: 100 P: 39 SC: 140 QRS: 5 QRSD: 82 T: 40 QT: 332 QTc: 428 Interpretive Statements Normal sinus rhythm Imaging CT scan - chest: Radiologist's impression: 1. No acute pulmonary embolus. 2. Consolidations in the posterior right upper and lower lobes, suspicious for pneumonia or aspiration. 3. Moderate centrilobular emphysema. 4. Moderate to severe coronary artery calcifications. Labs 02/13/25 10:26 02/13/25 10:26 Labs: Laboratory Results - last 24 hr 02/13/25 02/13/25 10:26 11:12 WBC 17.5 H RBC 4.54 Hgb 14.1 Hct 41.9 MCV 92.2 MCH 31.0 MCHC 33.6 RDW 13.6 Plt Count 297 Neut % (Auto) Not Reportable Lymph % (Auto) Not Reportable [place] % (Auto) Not Reportable Eos % (Auto) Not Reportable Baso % (Auto) Not Reportable Lymph # (Auto) Not Reportable [place] # (Auto) Not Reportable Baso # (Auto) Not Reportable Total Counted 100 Seg Neutrophils % 74.0 H Band Neutrophils % 10.0 H Lymphocytes % (Manual) 5.0 L Atypical Lymphs % 6.0 H Monocytes % (Manual) 5.0 Neutrophils # (Manual) 08627 H RBC Morphology Normal morphology Sodium 131 L Potassium 4.3 Chloride 100 Carbon Dioxide 17 L BUN 49 H Creatinine 1.91 H Estimated GFR 35 L BUN/Creatinine Ratio 25.7 H Glucose 121 H Lactate 2.1 Calcium 9.0 Magnesium 2.0 Total Bilirubin 2.0 H AST 37 ALT 27 Alkaline Phosphatase 73 Troponin I < 0.012 NT-Pro-B Natriuret Pep 304 Total Protein 8.8 H Albumin 4.5 Globulin 4.3 H Albumin/Globulin Ratio 1.0 Lipase 141 Ur Bilirubin Confirm Negative Urine RBC 30-100/hpf H Urine WBC 30-100/hpf H Ur Squamous Epith Cells 5-10 /hpf H Amorphous Sediment 2+ Urine Bacteria Many (>30) H Hyaline Casts 0-1/lpf Ur Culture Indicated? Cult not indicated Vol Urine Centrifuged 10ml (spun) SARS-CoV-2 (PCR) Negative Influenza A (RT-PCR) Flu a negative Influenza B (RT-PCR) Flu b negative RSV (PCR) Negative Assessment & Plan Assessment & Plan narrative: 1. Community-acquired pneumonia, active. 2. DARÍO, active. 3. Leukocytosis secondary to pneumonia, active. 4. Chronic problems of hypertension, hyperlipidemia, and dementia. 5. Urostomy relating to bladder resection in the past. PLAN: -IV fluids and IV antibiotics. -monitor blood cultures and renal function. -resume usual medications as able. -monitor breathing. Anticipate 1 midnight in the hospital, supports observation status. Full resuscitation is proxy decision maker. Time-Based Coding :: 35 min spent with patient and on the chart (including review of chart, obtaining history, exam, reviewing outside data, placing orders, documenting exam and treatment plan, and counseling patient) on 02/13. Quality MIPS - Admit I confirm the patient?s Advance Care Plan is present, Code status is documented, Surrogate decision maker is in patient?s record [If Yes, STOP here]: Yes MIPS - Meds 'Current medications' to include all prescriptions, [id number] products, herbals, cannabis/cannabidiol products, and vitamin/mineral/dietary (nutritional) supplements. I have utilized all available resources to obtain, update, or review the patient?s current medications. [If Yes, STOP here]: Yes
[2025-02-13] MEDS: SODIUM CHLORIDE 0.9% 1,000 ML 100 ML IV (14:38)
--- NOTE | 2025-02-13 19:13 | PC.NURSE ---
Patient was brought up from ER to room 211 at approx 1325, patient was oriented to room and call light. Call light placed within reach and bed alarm activated for safety and fall precautions. Patient states he feels weak and tired but denies pain. Urostomy (chronic) in place and patient is used to caring for this himself. Patient empties urostomy into toilet, but instructed to try to empty it into measuring container or urinal first so we can monitor. Patient's brought in his home urostomy equipment if needed, appliance is intact at this time.
[2025-02-13] MEDS: MELATONIN 3 MG TABLET PO (21:30)
[2025-02-13] MEDS: HEPARIN 5,000 UNIT/ML VIAL 5000 UNIT SUBCUT (21:31)
[2025-02-14 00:48] VITALS: BP 120/65; PULSE 95; RESP 19; TEMP 37.2; O2SAT 92
[2025-02-14] MEDS: SODIUM CHLORIDE 0.9% 1,000 ML 100 ML IV ×3 (01:05→22:56)
[2025-02-14 06:12] LABS: Blood Urea Nitrogen 34 mg/dL (9-20); Calcium 8.3 mg/dL (8.4-10.2); Carbon Dioxide 18 mmol/L (22-32); Chloride 106 mmol/L (98-107); Estimated Glomerular Filt Rate > 60 mL/min (>60); Glucose 106 mg/dL (70-99); HEMOLYSIS < 15 (0-50); Hematocrit 37.1 % (41-53); Hemoglobin 12.5 g/dL (13.5-17.5); Mean Corpuscular HGB Conc 33.7 % (30-36); Mean Corpuscular Hemoglobin 31.1 PG (26-34); Mean Corpuscular Volume 92.3 fL (80-100); Platelet Count 236 X10^3/uL (150-400); Potassium 3.7 mmol/L (3.4-5.1); Sodium 133 mmol/L (137-145)
[2025-02-14 06:17] LABS: Add Manual Diff / Slide Review YES
[2025-02-14 06:40] LABS: Band Neutrophils Percent 14.0 % (3-7); Lymphocytes Percent Manual 6.0 % (25-45); Monocytes Percent Manual 4.0 % (2-11); Neutrophils Absolute Manual 12510 /uL (3000-5900); RBC Morphology Normal Morphology; Segmented Neutrophils Percent 76.0 % (38-70); Total Cells Counted 100
[2025-02-14 07:04] VITALS: BP 140/74; PULSE 88; RESP 20; TEMP 36.7; O2SAT 93
[2025-02-14 08:00] VITALS: BP 147/74; PULSE 96; RESP 32; TEMP 37.3; O2SAT 94
[2025-02-14 09:40] VITALS: BP 147/74; PULSE 96
[2025-02-14] MEDS: HEPARIN 5,000 UNIT/ML VIAL 5000 UNIT SUBCUT ×2 (09:41→20:14)
[2025-02-14] MEDS: CITALOPRAM 10 MG TABLET 20 MG PO (09:41)
[2025-02-14] MEDS: AZITHROMYCIN 500 MG in DEXTROSE 5% IN WATER 250 ML 250 MG IV (10:31)
--- NOTE | 2025-02-14 11:02 | PM.PN.1 ---
Subjective Subjective Interval history: S: Feels weak today, has diffuse myalgias. Off oxygen, no dyspnea and minimal cough. O: VSS NAD, alert and oriented. Fluent speech. Lungs are clear, normal rate and effort. Heart is regular, no murmur gallop or rub. Abdomen is soft, non distended. Extremities are free of edema. A/P: 1. Community-acquired pneumonia, active. 2. DARÍO, active. 3. Leukocytosis secondary to pneumonia, active. 4. Chronic problems of hypertension, hyperlipidemia, and dementia. 5. Urostomy relating to bladder resection in the past. PLAN: -IV fluids and IV antibiotics. -monitor blood cultures and renal function. -resume usual medications as able. -monitor breathing. -Neg resp PCR -PT Exam Vital Signs (past 8 hours): - 02/14/25 07:04 02/14/25 08:00 02/14/25 09:40 Temperature 98.0 F 99.1 F Pulse Rate 88 96 H 96 H Respiratory Rate 20 32 H Blood Pressure 140/74 147/74 H 147/74 H Pulse Oximetry 93 94 Oxygen Flow Rate 2 2 Fraction of Inspired Oxygen 21 SaO2/FiO2 Ratio 442 Oxygen Delivery Method Room Air Oxygen Flow Rate 2 Objective Labs 02/14/25 05:40 02/14/25 05:40 Labs: Laboratory Results - last 24 hr 02/13/25 02/13/25 02/14/25 10:26 11:12 05:40 WBC 13.9 H RBC 4.02 L Hgb 12.5 L Hct 37.1 L MCV 92.3 MCH 31.1 MCHC 33.7 RDW 13.6 Plt Count 236 Neut % (Auto) Not Reportable Lymph % (Auto) Not Reportable [place] % (Auto) Not Reportable Eos % (Auto) Not Reportable Baso % (Auto) Not Reportable Lymph # (Auto) Not Reportable [place] # (Auto) Not Reportable Baso # (Auto) Not Reportable Total Counted 100 Seg Neutrophils % 76.0 H Band Neutrophils % 14.0 H Lymphocytes % (Manual) 6.0 L Monocytes % (Manual) 4.0 Neutrophils # (Manual) 28161 H RBC Morphology Normal morphology Sodium 133 L Potassium 3.7 Chloride 106 Carbon Dioxide 18 L BUN 34 H Creatinine 1.16 Estimated GFR > 60 BUN/Creatinine Ratio 29.3 H Glucose 106 H Calcium 8.3 L Ur Bilirubin Confirm Negative Urine RBC 30-100/hpf H Urine WBC 30-100/hpf H Ur Squamous Epith Cells 5-10 /hpf H Amorphous Sediment 2+ Urine Bacteria Many (>30) H Hyaline Casts 0-1/lpf Ur Culture Indicated? Cult not indicated Vol Urine Centrifuged 10ml (spun) SARS-CoV-2 (PCR) Negative Influenza A (RT-PCR) Flu a negative Influenza B (RT-PCR) Flu b negative RSV (PCR) Negative PFSH Medical History Dementia Generalized anxiety disorder Quit using tobacco in remote past H/O hyperlipidemia Quit consuming alcohol in remote past Peptic ulcer disease Bladder cancer HTN (hypertension) GERD (gastroesophageal reflux disease) Surgical History History of urostomy Social History household members: spouse and family Smoking Status: Former smoker alcohol intake: former Assessment & Plan Time-Based Coding :: [TOTAL MINUTES] spent with patient and on the chart (including review of chart, obtaining history, exam, reviewing outside data, placing orders, documenting exam and treatment plan, and counseling patient) on [DATE].
--- NOTE | 2025-02-14 13:50 | CM.DANOTE ---
Initial DCP Assessment Visit Note Reviewed EMR and team rounds for pt's medical status and updates. Pt resides independently with his in their own home here in [place]. His will also transport him home once he's medically cleared for home d/c. No CM d/c assistance or resource needs are indicated at this time. Payor: [employer] Medicare PCP: Dr. Chappell Pt is a 79 year-old M who presented to the ED with c/o cough, shortness of breath with exertion over the last few days. CT angio of the chest was suspicious for pneumonia. Pt was provide a breathing tx in the ED with DuoNeb, as well as started on IV fluids, IV antibiotics, and was admitted to the floor for continued tx and monitoring. DCP will continue to follow for any further d/c assistance or resource needs, however none are anticipated at this time. Discharge Planning/Care Management CM Discharge Assessment Start: 02/13/25 13:34 Freq: Status: Active Protocol: Document 02/14/25 13:48 DPL (Rec: 02/14/25 13:50 DPL [id number]) Discharge Planning Assessment Assigned Discharge BRIAN Dalton Architectural Drafting Instructor Insurance [facility] Advance Directives? Yes Advance Directives No on File History Provided By Patient,Medical Record Has Patient been No admitted in last 30 days? Prior Living House Arrangements Household Members spouse,family Type of Drives own vehicle transporation used prior to admit Independent with ADL Yes 's Is patient alert and Yes oriented? Comment N/A Caregiver for No Another Comment No AD at baseline. Comment No home d/c needs are identified at this time. Discharge Plan Home Transportation Family Arrangement Referrals Initiated None needed Whiteboard Updated Yes in Patient Room with name and ext. # of Labeling Strategist Review Status In Process Please Provide Date 02/14/25 Initial DC Assessment Was Performed
[2025-02-14 14:22] VITALS: BP 103/44; PULSE 88; RESP 22; TEMP 37.8; O2SAT 90
--- NOTE | 2025-02-14 15:29 | PT.IIE ---
Surgical History (Last Reviewed 02/13/25 @ 14:32 by Morgan Florentino MD) History of urostomy Medical History Bladder cancer Dementia Generalized anxiety disorder GERD (gastroesophageal reflux disease) H/O hyperlipidemia HTN (hypertension) Peptic ulcer disease Quit consuming alcohol in remote past Quit using tobacco in remote past Physical Therapy Inpatient Evaluation/Re-Eval M1 PT IP Prior Functional Status Start: 02/14/25 16:29 Freq: NEEDED Status: Active Protocol: Document 02/14/25 16:29 DLM (Rec: 02/14/25 16:46 DLM Desktop) Medical Review Prior Functional Status Medical History Yes Reviewed Diet/Fluid Regular Consistency Communication WFL, hx mild dementia with decreased memory Mobility and Gait Independent without device Activities of Daily Independent with basic ADL's. assists with Living and IADL's advanced ADL's. Pt drives. He manages his own catheter Prior Functional No prior home oxygen use Level (Other details ) Social History Household Members spouse,family Living Arrangements House Number of Floors ( One Floor Floors) Number of Stairs To none Enter/Railing? Home Environment Standard Height Toilet,Walk in Shower Home Equipment Four Wheel Walker,Grab Bars In Shower Employment Status Retired M2 PT-IP Current Condition Start: 02/14/25 16:29 Freq: NEEDED Status: Active Protocol: Document 02/14/25 16:29 DLM (Rec: 02/14/25 16:46 DLM Desktop) Physical Therapy Current Condition Current Condition Evaluation Date 02/14/25 Treatment Diagnosis PNA, DARÍO, impaired gait Onset Date 02/13/25 M3 PT-IP Subjective Start: 02/14/25 16:29 Freq: NEEDED Status: Active Protocol: Document 02/14/25 16:29 DLM (Rec: 02/14/25 16:46 DLM Desktop) Subjective Physical Therapy Visit Type Type Initial Evaluation Visit Start Time 16:00 Visit Stop Time 16:29 Notes 29 min Number of HEAVY EQUIPMENT ENGINE MECHANIC Visits 0 Physical Therapy Visit Comments Patient Comments He feels weak and unsteady when moving Patient Goals Be able to go home Therapy Pain Assessment Pain When Pain Assessed During Mobility Pain Present Pain Present Pain Reported Location Right hip Scale Used he did not rate Description Aching,Phantom,With Movement Pain Behaviors Wincing Pain Management Modification of Treatment Techniques M4 PT-IP Mobility and Gait Start: 02/14/25 16:29 Freq: NEEDED Status: Active Protocol: Document 02/14/25 16:29 DLM (Rec: 02/14/25 16:46 DLM Desktop) PT-Bed Mobility Assessment Supine to Sit Supine to Sit Contact Guard Assistance Sit to Supine Sit to Supine Standby Assistance Scooting Scooting to Edge of Standby Assistance Bed PT-Transfer Assessment Sit to and From Stand Sit to and from Contact Guard Assistance,Minimal Assistance Stand Equipment Transfer Assistive Front Wheeled Walker Device Transfers Transfer Destination Bed Transfer Technique Stand Step Pivot Transfer Ability Level of Assist Contact Guard Assistance,Minimal Assistance,Use of Upper Extremities Comments Mobility Comments Pt attempted to stand without FWW but he was unsteady and reports increased right anterior hip pain. Trialed a FWW and pt felt safer this visit. He was able to progress to gait with the FWW. Gait Assessment Gait Gait Assistance Contact Guard Assist,Minimum Assistance Required: Distance (Feet) 65 Assistive Devices Assistive Device Front Wheeled Walker Factors Limiting Gait Function Factors Limiting Abnormal Tonal Influences,Decreased Strength,Pain, Gait Function Respiratory Distress Comments Gait Comments intermittent lateral losses of balance that he could not manage with the FWW and needed therapist assist Pt needed 2 LPL oxygen at rest and 3 LPM with activity. Stair Climbing Assessment Comments Stair Climbing Not applicable, he reports no stairs at home Comments PT-Balance Assessment Sitting Balance and Reactions Static Sitting Good Balance Ability Dynamic Sitting Fair Balance Ability Standing Balance and Reactions Static Standing Fair Balance Ability Dynamic Standing Fair Balance Ability M5 PT-IP Objective Assessments Start: 02/14/25 16:29 Freq: NEEDED Status: Active Protocol: Document 02/14/25 16:29 DLM (Rec: 02/14/25 16:46 DLM Desktop) Orientation Orientation/Cognition Level of Alertness Alert Safety Awareness Decreased Safety Awareness Memory Description Short Term Impaired Gross Range of Motion Upper Extremity ROM Assessment Within Functional Limits Lower Extremity ROM Assessment Right Impaired Impairments pain in right anterior hip area Strength Upper Extremity Strength Assessment Within Functional Limits Lower Extremity Strength Assessment Right Impaired Hip pain, flex 2+/5 Coordination Assessment Gross Coordination Gross Coordination WNL Sensation Assessment Sensation Gross Sensation WNL Muscle Tone Muscle Tone WNL Yes M6 PT-IP Treatment Start: 02/14/25 16:29 Freq: NEEDED Status: Active Protocol: Document 02/14/25 16:29 DLM (Rec: 02/14/25 16:46 DLM Desktop) Physical Therapy Treatment Education Education Provided Safety Other Treatments Other Treatment educated pt in his decreased balance and need for Performed walker at this time M7 PT-IP Assessment and Plan Start: 02/14/25 16:29 Freq: NEEDED Status: Active Protocol: Document 02/14/25 16:29 DLM (Rec: 02/14/25 16:46 DLM Desktop) PT Summary Assessment and Plan Potential Rehabilitation Good Potential Status of Condition Evolving at Evaluation Summary Impairments Pain,Strength,Balance,Cognition,Bed Mobility,Transfers, Gait,Activity Tolerance Assessment Summary Som is alert and resting in bed. He was admitted with hypoxia and diagnosed with Pneumonia. He has been having fevers. Pt also diagnosed with DARÍO with elevated BUN. He has hx of bladder resection due to cancer and has chronic urostomy. This visit he is resting on 2 LPM supplemental oxygen and needed 3 LPM for activity. He has new onset right anterior hip pain with activity today. He was unsafe standing without a device and needed a FWW for standing and gait. Even with the FWW he had intermittent lateral losses of balance during gait that he needed assist to correct. He was very fatigued with gait in the graham this visit and returned to bed to rest. He verbalizes frustration at being sick and his need to be in the hospital. His is present this visit and assisted with lines during activity. Recommend home with assist and home health Physical Therapy if he progresses well during this admission. He is hopeful to wean off oxygen before discharge home. I anticipate he will need to use a walker at home at discharge. Goals Bed Mobility Goal Independent Transfer Goal Independent,Front Wheeled Walker Gait Goal Standby Assistance,Front Wheel Walker,Four Wheel Walker Gait Distance 150 feet Days to Meet Goals 5 Frequency of Treatment Frequency Of Once a Day Treatment Treatment Plan Physical Therapy Bed Mobility Training,Transfer Training,Gait Training, Treatment Plan Therapeutic Exercise,Balance Retraining,Discharge Planning,Neuromuscular Re-ed Other assess need for walker at home, monitor oxygen needs Recommendations and Next Treatment Focus Precautions Other Precautions new oxygen needs has urostomy hx dementia Recommendations To Nursing Amount of Assist 1 Person Assist Needed Discharge Recommendations PT Discharge Home with 12/10 Assist Available,Home Health Recommendations Transportation Needs Private Vehicle at Discharge - PT assist 1
[2025-02-14 20:08] VITALS: BP 134/72; PULSE 100; RESP 19; TEMP 37.4; O2SAT 95
[2025-02-14] MEDS: MELATONIN 3 MG TABLET PO (20:15)
[2025-02-15] VITALS (7 sets, daily range): BP systolic 119–148; BP diastolic 55–76; PULSE 77–89; RESP 18–26; TEMP 36.8–38.2; O2SAT 93–98
[2025-02-15] MEDS: HEPARIN 5,000 UNIT/ML VIAL 5000 UNIT SUBCUT ×2 (08:42→21:27)
[2025-02-15] MEDS: SODIUM CHLORIDE 0.9% 1,000 ML 100 ML IV ×2 (08:42→21:30)
[2025-02-15] MEDS: CITALOPRAM 10 MG TABLET 20 MG PO (08:42)
[2025-02-15] MEDS: AZITHROMYCIN 500 MG in DEXTROSE 5% IN WATER 250 ML 250 MG IV (09:58)
--- NOTE | 2025-02-15 12:31 | P.PN_ITS ---
Subjective Subjective Interval history: S: Still weak, but feeling better. Did have a fever overnight. Still somewhat short of breath with exertion and requiring oxygen. O: VSS NAD, alert and oriented. Fluent speech. Lungs are clear, normal rate and effort. Heart is regular, no murmur gallop or rub. Abdomen is soft, non distended. Extremities are free of edema. On O2. A/P: 1. Community-acquired pneumonia, active. 2. DARÍO, active. 3. Leukocytosis secondary to pneumonia, active. 4. Chronic problems of hypertension, hyperlipidemia, and dementia. 5. Urostomy relating to bladder resection in the past. PLAN: -IV fluids and IV antibiotics. -monitor blood cultures and renal function. -resume usual medications as able. -monitor breathing. -Neg resp PCR -PT With his fever, he requires another night of IV antibiotics. He may be able to go home on February 08. Exam Vital Signs (past 8 hours): - 02/15/25 07:00 02/15/25 08:25 02/15/25 08:40 Temperature 98.2 F Pulse Rate 77 Respiratory Rate 26 H Blood Pressure 140/74 Pulse Oximetry 98 97 Oxygen Delivery Method Nasal Cannula Nasal Cannula Oxygen Flow Rate 2 2 Fraction of Inspired Oxygen 21 SaO2/FiO2 Ratio 442 Oxygen Delivery Method Nasal Cannula Oxygen Flow Rate 2 Objective Labs 02/14/25 05:40 02/14/25 05:40 [facility] Medical History Dementia Generalized anxiety disorder Quit using tobacco in remote past H/O hyperlipidemia Quit consuming alcohol in remote past Peptic ulcer disease Bladder cancer HTN (hypertension) GERD (gastroesophageal reflux disease) Surgical History History of urostomy Social History household members: spouse and family Smoking Status: Former smoker alcohol intake: former Assessment & Plan Time-Based Coding :: [TOTAL MINUTES] spent with patient and on the chart (including review of chart, obtaining history, exam, reviewing outside data, placing orders, documenting exam and treatment plan, and counseling patient) on [DATE].
--- NOTE | 2025-02-15 12:34 | CM.DPC ---
DCP HH Planning: Per MD, pt making some improvements but due to SOB back on 2LO2 and not yet stable for discharge. Per PT, recommending home with spouse assist and HH. Met bedside with pt and spouse and explained role and discussed HH recommendations. They confirm preference is home when stable and deny any hx of HH and explained services and frequency and they are agreeable and feel HH needed at d/c. Provided HH Choice list and no HH preference so referral sent to [facility] based on Vendor Calendar and pt's insurance. F2F and HH order done but not sent yet. Plan: SW to follow for plan of home with spouse once on room air and [facility] review to confirm they can accept his insurance. Fax d/c summary, F2F and HH orders to [facility] at discharge. BRIAN Whitmore
[2025-02-15] MEDS: CALCIUM CARBONATE 500 MG TAB PO (12:46)
--- NOTE | 2025-02-15 12:48 | PT.IPTN ---
Physical Therapy Treatment Note M2 PT-IP Current Condition Start: 02/14/25 16:29 Freq: NEEDED Status: Active Protocol: Document 02/14/25 16:29 DLM (Rec: 02/14/25 16:46 DLM Desktop) Physical Therapy Current Condition Current Condition Evaluation Date 02/14/25 Treatment Diagnosis PNA, DARÍO, impaired gait Onset Date 02/13/25 M3 PT-IP Subjective Start: 02/14/25 16:29 Freq: NEEDED Status: Active Protocol: Document 02/15/25 12:21 MB (Rec: 02/15/25 12:47 MB Desktop) Subjective Physical Therapy Visit Type Type Treatment Note Visit Start Time 12:21 Visit Stop Time 12:41 Number of COMSEC MANAGER Visits 0 Physical Therapy Visit Comments Patient Comments Pt is agreeable to mobility Therapy Pain Assessment Pain When Pain Assessed At Rest Pain Present Pain Present Denied Pain M4 PT-IP Mobility and Gait Start: 02/14/25 16:29 Freq: NEEDED Status: Active Protocol: Document 02/15/25 12:21 MB (Rec: 02/15/25 12:47 MB Desktop) PT-Bed Mobility Assessment Rolling Level of Assist Standby Assistance Supine to Sit Supine to Sit Standby Assistance,Head of Bed Elevated Sit to Supine Sit to Supine Standby Assistance,Head of Bed Elevated Scooting Scooting to Edge of Standby Assistance Bed Scooting Up and Down Standby Assistance in Bed PT-Transfer Assessment Sit to and From Stand Sit to and from Standby Assistance Stand Equipment Transfer Assistive Gait Belt,Front Wheeled Walker Device Orthotic/Prosthetic No Devices or Brace: Transfers Transfer Destination Bed Transfer Technique Ambulation Comments Mobility Comments O2 sats on 2L at rest with mouth breathing are 77% and increase to 95% when he breathes through his nose Gait Assessment Gait Gait Assistance Standby Assistance Required: Distance (Feet) 200 Able to Maintain Yes Weight Bearing Status During Gait Assistive Devices Assistive Device Gait Belt,Front Wheeled Walker Orthotic/Prosthetic No Devices or Brace: Gait Deviations General Gait Pattern Decreased Feet Clearance,Flexed Trunk Factors Limiting Gait Function Factors Limiting Poor Safety Awareness Gait Function Comments Gait Comments PT manages O2 tank and pt on 2L O2 with mobility and sats are in the low 70s on return to room and elevated HR with questionable reading d/t HR 200 BPM. After 2' of breathing nose nose, O2 sats recover to the mid 80s and HR is 101 BPM. PT-Balance Assessment Sitting Balance and Reactions Static Sitting Good Balance Ability Dynamic Sitting Good Balance Ability Standing Balance and Reactions Static Standing Good Balance Ability Dynamic Standing Good Balance Ability Device Used RW M5 PT-IP Objective Assessments Start: 02/14/25 16:29 Freq: NEEDED Status: Active Protocol: Document 02/14/25 16:29 DLM (Rec: 02/14/25 16:46 DLM Desktop) Orientation Orientation/Cognition Level of Alertness Alert Safety Awareness Decreased Safety Awareness Memory Description Short Term Impaired Gross Range of Motion Upper Extremity ROM Assessment Within Functional Limits Lower Extremity ROM Assessment Right Impaired Impairments pain in right anterior hip area Strength Upper Extremity Strength Assessment Within Functional Limits Lower Extremity Strength Assessment Right Impaired Hip pain, flex 2+/5 Coordination Assessment Gross Coordination Gross Coordination WNL Sensation Assessment Sensation Gross Sensation WNL Muscle Tone Muscle Tone WNL Yes M6 PT-IP Treatment Start: 02/14/25 16:29 Freq: NEEDED Status: Active Protocol: Document 02/14/25 16:29 DLM (Rec: 02/14/25 16:46 DLM Desktop) Physical Therapy Treatment Education Education Provided Safety Other Treatments Other Treatment educated pt in his decreased balance and need for Performed walker at this time M7 PT-IP Assessment and Plan Start: 02/14/25 16:29 Freq: NEEDED Status: Active Protocol: Document 02/15/25 12:21 MB (Rec: 02/15/25 12:47 MB Desktop) PT Summary Assessment and Plan Potential Rehabilitation Good Potential Status of Condition Evolving at Evaluation Summary Impairments Strength,Balance,Bed Mobility,Transfers,Gait,Activity Tolerance Progress Towards Progressing Toward Goals Goals Assessment Summary Pt presents with O2 desaturation and increased HR with mobility on 2L O2 and unsure if machine readings are accurate (see notes above). He will benefit from home O2 assessment by RT. He increases gait with RW today. nearby and they plan to take him home tomorrow or at d/c. Goals Bed Mobility Goal Independent Transfer Goal Independent,Front Wheeled Walker Gait Goal Standby Assistance,Front Wheel Walker,Four Wheel Walker Gait Distance 200 feet Days to Meet Goals 5 Frequency of Treatment Frequency Of Once a Day Treatment Treatment Plan Physical Therapy Bed Mobility Training,Transfer Training,Gait Training, Treatment Plan Therapeutic Exercise,Balance Retraining,Discharge Planning,Neuromuscular Re-ed Other Pt states he has a RW at home Recommendations and Next Treatment Focus Precautions Other Precautions new oxygen needs has urostomy hx dementia Recommendations To Nursing Amount of Assist 1 Person Assist Needed Discharge Recommendations PT Discharge Home with 12/10 Assist Available,Home Health Recommendations Transportation Needs Private Vehicle at Discharge - PT assist 1
[2025-02-15 13:14] LABS: Hematocrit 36.4 % (41-53); Hemoglobin 12.2 g/dL (13.5-17.5); Mean Corpuscular HGB Conc 33.6 % (30-36); Mean Corpuscular Hemoglobin 31.1 PG (26-34); Mean Corpuscular Volume 92.6 fL (80-100); Platelet Count 279 X10^3/uL (150-400)
[2025-02-15 13:22] LABS: Blood Urea Nitrogen 17 mg/dL (9-20); Calcium 8.1 mg/dL (8.4-10.2); Carbon Dioxide 18 mmol/L (22-32); Chloride 108 mmol/L (98-107); Estimated Glomerular Filt Rate > 60 mL/min (>60); Glucose 98 mg/dL (70-99); HEMOLYSIS < 15 (0-50); Potassium 3.6 mmol/L (3.4-5.1); Sodium 135 mmol/L (137-145)
[2025-02-15 13:23] LABS: Add Manual Diff / Slide Review YES
[2025-02-15 13:39] LABS: Band Neutrophils Percent 16.0 % (3-7); Eosinophils Percent Manual 1.0 % (2-4); Lymphocytes Percent Manual 10.0 % (25-45); Metamyelocytes Percent 2.0 % (-0); Monocytes Percent Manual 2.0 % (2-11); Neutrophils Absolute Manual 12070 /uL (3000-5900); RBC Morphology Normal Morphology; Segmented Neutrophils Percent 69.0 % (38-70); Total Cells Counted 100
[2025-02-15] MEDS: ACETAMINOPHEN 325 MG TABLET 650 MG PO (14:19)
[2025-02-15] MEDS: MELATONIN 3 MG TABLET PO (21:25)
[2025-02-16] MEDS: SODIUM CHLORIDE 0.9% 1,000 ML 100 ML IV (05:18)
[2025-02-16 07:00] VITALS: BP 146/78; PULSE 89; RESP 19; TEMP 37.1; O2SAT 94
[2025-02-16 08:58] VITALS: BP 146/78; PULSE 89
[2025-02-16] MEDS: CITALOPRAM 10 MG TABLET 20 MG PO (08:59)
[2025-02-16] MEDS: HEPARIN 5,000 UNIT/ML VIAL 5000 UNIT SUBCUT (08:59)
[2025-02-16] MEDS: AZITHROMYCIN 500 MG in DEXTROSE 5% IN WATER 250 ML 250 MG IV (09:54)
--- NOTE | 2025-02-16 10:37 | P.DS_ITS ---
History of Present Illness History of Present Illness Chief complaint: hypoxia Narrative: The patient is a 79-year-old male who was ill since colonoscopy last Wednesday. He was had a cough and dyspnea. At the walk-in clinic he was found to be hypoxic and sent to the ED. he was a history of dementia, hypertension, dyslipidemia, bladder cancer with urostomy, and peptic ulcer disease. The patient notes that he does have dementia and understands that he was some memory issues. He lives in town, with his . He denies a productive cough, fevers, or chills. No chest pain. He was had a poor appetite. SaO2 is improved in the ED, there was an issue with capnography readings. ED: IV antibiotics given. Discharge Providers Provider Date of admission: 02/15/25 14:58 Discharge Date: 02/16/25 Primary care physician: Cindy Chappell MD Consults: 02/14/25 12:13 Consult to Physical Therapy Evaluate & Treat Comment: Physician Instructions: Evaluate and Treat 02/15/25 12:33 Consult to Home Health Routine Comment: Pneumonia, DARÍO, Leukocytosis Reason For Exam: Set up HH RN/PT for discharge to home when stable Discharge provider: Morgan Florentino MD Summary Hospital Course Discharge Diagnosis: 1. Community-acquired pneumonia, active. 2. DARÍO, active. 3. Leukocytosis secondary to pneumonia, active. 4. Chronic problems of hypertension, hyperlipidemia, and dementia. 5. Urostomy relating to bladder resection in the past. Hospital Course: He was admitted for pneumonia. He was not hypoxic but had profound fatigue. He was treated with IV antibiotics and had good relief of his symptoms over the next 2 days. He was having some hypoxemia with exertional desaturations but these improved. On the day of discharge, he was felt to be stable for discharge and he was eager to go home. He will continue oral antibiotics for several more days. He was asked to follow up with primary care within the next 5-7 days for reassessment. Status at Discharge Cognitive/behavioral status at discharge: oriented Functional status at discharge: independent ambulation Overall status at discharge: patient is back to baseline Time Spent with Patient Time spent: Greater than 30 minutes Exam Vital Signs (past 8 hours): - 02/16/25 07:00 02/16/25 07:00 02/16/25 08:58 Temperature 98.8 F Pulse Rate 89 89 Respiratory Rate 19 Blood Pressure 146/78 H 146/78 H Pulse Oximetry 94 Oxygen Delivery Method Nasal Cannula Oxygen Flow Rate 2 Fraction of Inspired Oxygen 21 SaO2/FiO2 Ratio 442 Oxygen Delivery Method Nasal Cannula Oxygen Flow Rate 2 Narrative Exam Narrative: Discharge exam: NAD, alert and oriented. Fluent speech. Lungs are clear, normal rate and effort. Heart is regular, no murmur gallop or rub. Abdomen is soft, non distended. Extremities are free of edema. Objective Imaging CT scan - chest: Radiologist's impression: CT scan - chest: Radiologist's impression: 1. No acute pulmonary embolus. 2. Consolidations in the posterior right upper and lower lobes, suspicious for pneumonia or aspiration. 3. Moderate centrilobular emphysema. 4. Moderate to severe coronary artery calcifications. Labs 02/15/25 12:54 02/15/25 12:54 Labs: Laboratory Results - last 24 hr 02/15/25 12:54 WBC 14.2 H RBC 3.93 L Hgb 12.2 L Hct 36.4 L MCV 92.6 MCH 31.1 MCHC 33.6 RDW 13.8 Plt Count 279 Neut % (Auto) Not Reportable Lymph % (Auto) Not Reportable [place] % (Auto) Not Reportable Eos % (Auto) Not Reportable Baso % (Auto) Not Reportable Lymph # (Auto) Not Reportable [place] # (Auto) Not Reportable Baso # (Auto) Not Reportable Total Counted 100 Seg Neutrophils % 69.0 Band Neutrophils % 16.0 H Lymphocytes % (Manual) 10.0 L Monocytes % (Manual) 2.0 Eosinophils % (Manual) 1.0 L Metamyelocytes % 2.0 H Neutrophils # (Manual) 99783 H RBC Morphology Normal morphology Sodium 135 L Potassium 3.6 Chloride 108 H Carbon Dioxide 18 L BUN 17 Creatinine 0.93 Estimated GFR > 60 BUN/Creatinine Ratio 18.3 Glucose 98 Calcium 8.1 L PFSH Medical History Dementia Generalized anxiety disorder Quit using tobacco in remote past H/O hyperlipidemia Quit consuming alcohol in remote past Peptic ulcer disease Bladder cancer HTN (hypertension) GERD (gastroesophageal reflux disease) Surgical History History of urostomy Social History household members: spouse and family Smoking Status: Former smoker alcohol intake: former Discharge Assessment & Plan Assessment and Plan Assessment: 1. Community-acquired pneumonia, active. 2. DARÍO, active. 3. Leukocytosis secondary to pneumonia, active. Plan of Treatment: Discharge home on cefdinir, for an additional 7 days. Discharge Plan Discharge Plan Patient Disposition: Home Provider Discharge Comment: Stable for discharge home on oral antibiotics. Close follow up with PCP. Discharge orders & Medications Prescriptions: New cefdinir 300 mg capsule 300 mg PO BID Qty: 14 0RF Continued lovastatin 10 MG tablet 40 mg PO Q ARSH Qty: 0 LISINOPRIL (Zestril / Prinivil) 20 mg PO Q DAY Qty: 0 donepezil 5 mg Tablet 5 mg PO DAILY citalopram 20 mg Tablet 20 mg PO DAILY melatonin 3 mg Tablet 3 mg PO BEDTIME Qty: 30 0RF buspirone 5 mg tablet 5 mg PO BID Follow up/Referrals: Cindy Chappell MD [Primary Care Provider, Internal Medicine] Diet/Activity/Treatments Diet: Regular Skin/Wound/Dressing Care Report to your healthcare provider any signs of infection, such as:: chills, fever Visit Report/Discharge Packet Instructions: DI for Pneumonia -- Adult Stand Alone Forms: Patient Portal/API Discharge Data Primary Care Provider: Cindy Chappell
[2025-02-16 10:41] VITALS: O2SAT 92
--- NOTE | 2025-02-16 12:26 | PC.NURSE ---
discharge instructions given and understood by patient. PIV removed. Pt discharged with to private vehicle via wheelchair.
== END 2025-02-16 12:15 | disposition home health service (06) | DRG 871 ==
LOC: ED 10:51 → AC 12:46
PROVIDERS: Admitting Provider Hospitalist; Emergency Provider Family Medicine; PCP Internal Medicine; Referring Provider Family Medicine; Visit Provider Hospitalist
DX: A41.9 Sepsis, unspecified organism (principal); J18.9 Pneumonia, unspecified organism; N17.9 Acute kidney failure, unspecified; F03.90 Unspecified dementia, unspecified severity, without behavioral disturbance, psychotic disturbance, mood disturbance, and anxiety; I10 Essential (primary) hypertension; E78.5 Hyperlipidemia, unspecified; R09.02 Hypoxemia; F41.1 Generalized anxiety disorder; J43.9 Emphysema, unspecified; I25.10 Atherosclerotic heart disease of native coronary artery without angina pectoris; Z93.6 Other artificial openings of urinary tract status; Z98.890 Other specified postprocedural states; Z87.891 Personal history of nicotine dependence; Z85.51 Personal history of malignant neoplasm of bladder
CPT/HCPCS: 36415; 71275; 80048; 80053; 81003; 81015; 83605; 83690; 83735; 83880; 84484; 85007; 85025; 87040; 87077; 87086; 87186; 87637; 93005; 94618; 94640; 94760; 96365; 96367; 97116; 97162; 99284; G0378; J0696; J1644; J7030; J7050; J7060; Q9967